=== PATIENT | male | born 1930 | race Caucasian/White ===

== ENCOUNTER 2017-03-04 20:34 | Observation (INO) | payer OTHER, MEDICARE ==
[~2017-03-04] VITALS: Ht 180.3 cm; Wt 94.4 kg
[~2017-03-04 20:34] MED LIST: ASPEC81 PO; CLIN300C2 PO; CMD5 PO; FLM4 PO; LOSA25TA18 PO; MAGN400T6 PO; MAXZIDE PO; SYN50 PO
[2017-03-04 21:35] LABS: BASO % 0.1 %; BASO ABS # 0.01 K/uL (0-0.2); COMPLETE YES; EOS % 1.5 %; HEMATOCRIT 45.1 % (42-52); IG% 0.3 %; LYMPH % 30.3 %; LYMPH ABS # 2.36 K/uL (1.2-3.4); MEAN CELL VOLUME 100.7 fL (80-100); MEAN CORPUSCULAR HEMOGLOBIN 34.2 pg (25-34); MEAN CORPUSCULAR HGB CONC 33.9 g/dl (32-36); MEAN PLATELET VOLUME 9.8 fL (7.4-10.4); MONO % 10.6 %; NEUT % 57.2 %; PLATELET COUNT 201 K/uL (130-400); RED BLOOD COUNT 4.48 M/uL (4.7-6.1)
[2017-03-04 21:43] LABS: MANUAL MICROSCOPIC REQUIRED? NO; REVIEW REQ? NO; URINE APPEARANCE CLEAR (CLEAR); URINE BILIRUBIN NEG (NEG); URINE COLOR YELLOW; URINE NITRITE NEG (NEG); URINE SPECIFIC GRAVITY 1.011 (1.000-1.030); UROBILINOGEN NEG (NEG); ZZUR CULT IF INDIC CLEAN CATCH NO
--- NOTE | 2017-03-04 21:52 | DIAGNOSTIC IMAGING REPORT ---
CHEST ONE VIEW PORTABLE CLINICAL HISTORY: Dizzy mental status change COMPARISON STUDY: 07/15/2013 FINDINGS: Mild atelectasis left base. Lungs otherwise appear clear. No evidence for significant cardiac enlargement. Diaphragms smooth. IMPRESSION: Mild atelectasis left base. Otherwise negative study Electronically signed by: Benjamín Nguyen M.D. 03/04/2017 9:50 PM Dictated Date/Time: 03/04/2017 9:50 PM
[2017-03-04 21:57] LABS: ALT/SGPT 31 U/L (12-78); BLOOD UREA NITROGEN 18 mg/dl (7-18); BUN/CREATININE RATIO 13.6 (10-20); CARBON DIOXIDE 25 mmol/L (21-32); CHLORIDE 106 mmol/L (98-107); GLUCOSE 99 mg/dl (70-99); POTASSIUM 3.5 mmol/L (3.5-5.1); SODIUM 142 mmol/L (136-145)
[2017-03-04 22:03] LABS: CALCIUM 8.9 mg/dl (8.5-10.1)
[2017-03-04 22:08] LABS: ALB/GLOB RATIO 1.1 (0.9-2); ALKALINE PHOSPHATASE 99 U/L (45-117); AST/SGOT 26 U/L (15-37); CKMB/CK RATIO 0.8 (0-3.0)
[2017-03-04] MEDS ORDERED: POTASSIUM CHLORIDE 10 MEQ TABCR PO STA (22:21)
[2017-03-04 22:59] LABS: MAGNESIUM 1.8 mg/dl (1.8-2.4)
[2017-03-04] MEDS ORDERED: ASPI-435 PO (23:41)
[2017-03-04] MEDS ORDERED: TRIATAB3 PO (23:45)
[2017-03-04] MEDS ORDERED: MAGNESIUM SULFATE 1GM / D5W 1 GM IV STA (23:54)
[2017-03-04] MEDS ORDERED: METOPROLOL TARTRATE 50 MG TAB PO STA (23:55)
[2017-03-05] VITALS (11 sets, daily range): BP systolic 137–176; BP diastolic 79–90; PULSE 53–72; TEMP 36.3–36.8; O2SAT 92–98; Ht 180.3 cm; Wt 94.4 kg
[2017-03-05] MEDS ORDERED: NITROGLYCERIN 0.4 MG SL PER TAB CHARGE SL PRN (00:30)
[2017-03-05] MEDS ORDERED: ONDANSETRON INJ 2 MG/ML 2 ML VIAL IV PRN (00:30)
[2017-03-05] MEDS ORDERED: ACETAMINOPHEN 325 MG TAB PO PRN (00:30)
[2017-03-05] MEDS ORDERED: TRAMADOL HCL 50 MG TAB PO PRN (00:30)
[2017-03-05] MEDS ORDERED: ZOLPIDEM TARTRATE 5 MG TAB PO PRN (00:30)
[2017-03-05] MEDS ORDERED: MoRPHine SULFATE 4 MG/ML 1 ML CARP\\VIAL IV PRN (00:30)
[2017-03-05] MEDS ORDERED: IV FLUIDS COMPLETED PRN (00:45)
--- NOTE | 2017-03-05 01:28 | EMERGENCY ROOM VISIT NOTE ---
History Report prepared by Chava: Charlie Armijo Under the Supervision of: Dr. Mookie Vogt M.D. First contact with patient: 21:38 Chief Complaint: DIZZY Stated Complaint: LIGHT HEADED,FAINT History of Present Illness The patient is a 86 year old male who presents to the Emergency Room with complaints of intermittent dizziness beginning shortly prior to arrival. He states "it just felt like I was going to pass out". He describes his dizziness as feeling of "lightheadedness". The patient has no history of similar symptoms. He states that his symptoms began while he was driving. He states that his symptoms resolved 15 minutes ago, and have returned since. The patient states that he has been having headaches recently, but attributes it to arthritis in his neck. He also states that he felt some chest "tightness" with his symptoms. Pt denies LOC, fevers, chills, diaphoresis, visual changes, neck pain, breathing difficulties, nausea, vomiting, abdominal pain, back pain, melena, hematochezia, urinary symptoms, numbness, weakness, lymphadenopathy, rash, or other complaints. He has a history of angioplasty. He has two cardiac stents in place. The patient is on Warfarin due to previous PE. He states that he has been eating and drinking normally. Per , the patient is at his mental baseline and has not been confused recently. Source of History: patient Onset: shortly prior to arrival Quality: other ("lightheadedness") Timing: intermittent Associated Symptoms: + headache, + chest pain ("tightness"), No SOB, No nausea, No vomiting, No diarrhea, No urinary symptoms Review of Systems See HPI for pertinent positives and negatives. A total of ten systems were reviewed and were otherwise negative. Past Medical & Surgical Medical Problems: (1) Coronary artery disease (2) Hyperlipidemia (3) Hypertension (4) Hypertensive urgency (5) Pulmonary embolism Surgical Problems: (1) H/O percutaneous transluminal coronary angioplasty (2) Stented coronary artery Family History No pertinent family history stated. Social History Smoking Status: Never Smoker Marital Status: Housing Status: lives with family Current/Historical Medications Scheduled Amlodipine (Norvasc), 5 MG PO QAM Aspirin (Aspirin 81), 81 MG PO QAM Atorvastatin (Lipitor), 80 MG PO DAILY Levothyroxine Sodium (Levothyroxine Sodium), 1 TAB PO DAILY Losartan Potassium (Cozaar), 50 MG PO BID Magnesium Oxide (Mag-Ox), 400 MG PO DAILY Metoprolol Tartrate (Lopressor) (Lopressor), 25 MG PO BID Multiple Vitamins W/ Minerals (Preservision Areds), 1 CAP PO BID [place]-3 Fatty Acids (Fish Oil), 1 CAP PO DAILY Potassium Chloride (Micro-K Ext Rel), 10 MEQ PO Q2D Tamsulosin Hcl (Flomax), 0.4 MG PO DAILY Triamterene/Hctz (Triamterene/Hctz 37.5-25MG), 1 TAB PO 5XWK Warfarin Sodium (Coumadin), 5 MG PO 2XWK Warfarin Sodium (Coumadin), 2.5 MG PO 5XWK Scheduled PRN Nitroglycerin (Nitrostat), 0.4 MG UT UD PRN for Chest Pain Zolpidem Tartrate (Ambien), 5 MG PO HS PRN Allergies Coded Allergies: Erythromycin (Verified Allergy, Mild, 03/04/17) Oxycodone (Verified Allergy, Mild, 03/04/17) Iodine (Verified Allergy, Unknown, 03/04/17) Macrolides (Verified Allergy, Unknown, 03/04/17) Clindamycin (Verified Adverse Reaction, Mild, 0, 03/05/17) twitching, spacey Hydrocodone (Verified Adverse Reaction, Unknown, SLEEPY, 03/04/17) FELT LIKE HE WOULD NEVER AWAKEN Physical Exam Vital Signs Date Time Temp Pulse Resp B/P (MAP) Pulse Ox O2 Delivery O2 Flow Rate FiO2 03/05/17 01:06 55 16 150/85 98 Room Air 03/05/17 00:03 88 16 155/85 98 Room Air 03/04/17 23:05 72 18 183/87 95 Room Air 03/04/17 21:13 64 20 178/83 98 Room Air 76 164/100 80 167/114 03/04/17 20:49 73 03/04/17 20:36 36.4 74 18 206/88 92 Room Air Physical Exam GENERAL: Awake, alert, well-appearing, in no distress HENT: Normocephalic, atraumatic. Oropharynx unremarkable. EYES: Normal conjunctiva. Sclera non-icteric. NECK: Supple. No nuchal rigidity. FROM. No JVD. RESPIRATORY: Clear to auscultation. CARDIAC: Regular rate, normal rhythm. Extremities warm and well perfused. Pulses equal. ABDOMEN: Soft, non-distended. No tenderness to palpation. No rebound or guarding. No masses. RECTAL: Deferred. MUSCULOSKELETAL: Chest examination reveals no tenderness. The back is symmetrical on inspection without obvious abnormality. There is no CVA tenderness to palpation. No joint edema. LOWER EXTREMITIES: Calves are equal size bilaterally and non-tender. No edema. No discoloration. NEURO: Normal sensorium. No sensory or motor deficits noted. SKIN: No rash or jaundice noted. Medical Decision & Procedures ER Provider Diagnostic Interpretation: X-ray: Per my interpretation, radiologist review. CHEST ONE VIEW PORTABLE FINDINGS: Mild atelectasis left base. Lungs otherwise appear clear. No evidence for significant cardiac enlargement. Diaphragms smooth. IMPRESSION: Mild atelectasis left base. Otherwise negative study Electronically signed by: Benjamín Nguyen M.D. CT result per statrad and my review. CT HEAD: Comparison: CT head 07/15/13 No acute intracranial abnormality. No ICH, mass effect, or edema. Cortical atrophy and white matter changes most consistent with chronic small vessel disease. Visualized sinuses and mastoid air cells are clear. Laboratory Results 03/04/17 21:07 Red Blood Count 4.48, Mean Corpuscular Volume 100.7, Mean Corpuscular Hemoglobin 34.2, Mean Corpuscular Hemoglobin Concent 33.9, Mean Platelet Volume 9.8, Neutrophils (%) (Auto) 57.2, Lymphocytes (%) (Auto) 30.3, Monocytes (%) ( Auto) 10.6, Eosinophils (%) (Auto) 1.5, Basophils (%) (Auto) 0.1, Neutrophils # (Auto) 4.46, Lymphocytes # (Auto) 2.36, Monocytes # (Auto) 0.83, Eosinophils # ( Auto) 0.12, Basophils # (Auto) 0.01 03/04/17 21:07 Test 03/04/17 21:07 03/04/17 21:10 White Blood Count 7.80 K/uL (4.8-10.8) Red Blood Count 4.48 M/uL (4.7-6.1) Hemoglobin 15.3 g/dL (14.0-18.0) Hematocrit 45.1 % (42-52) Mean Corpuscular Volume 100.7 fL (80-100) Mean Corpuscular Hemoglobin 34.2 pg (25-34) Mean Corpuscular Hemoglobin Concent 33.9 g/dl (32-36) Platelet Count 201 K/uL (130-400) Mean Platelet Volume 9.8 fL (7.4-10.4) Neutrophils (%) (Auto) 57.2 % Lymphocytes (%) (Auto) 30.3 % Monocytes (%) (Auto) 10.6 % Eosinophils (%) (Auto) 1.5 % Basophils (%) (Auto) 0.1 % Neutrophils # (Auto) 4.46 K/uL (1.4-6.5) Lymphocytes # (Auto) 2.36 K/uL (1.2-3.4) Monocytes # (Auto) 0.83 K/uL (0.11-0.59) Eosinophils # (Auto) 0.12 K/uL (0-0.5) Basophils # (Auto) 0.01 K/uL (0-0.2) RDW Standard Deviation 48.5 fL (36.4-46.3) RDW Coefficient of Variation 13.1 % (11.5-14.5) Immature Granulocyte % (Auto) 0.3 % Immature Granulocyte # (Auto) 0.02 K/uL (0.00-0.02) Anion Gap 11.0 mmol/L (3-11) Est Creatinine Clear Calc Drug Dose 49.9 ml/min Estimated GFR () 58.1 Estimated GFR (Non- 50.1 BUN/Creatinine Ratio 13.6 (10-20) Calcium Level 8.9 mg/dl (8.5-10.1) Magnesium Level 1.8 mg/dl (1.8-2.4) Total Bilirubin 0.6 mg/dl (0.2-1) Aspartate Amino Transf (AST/SGOT) 26 U/L (15-37) Alanine Aminotransferase (ALT/SGPT) 31 U/L (12-78) Alkaline Phosphatase 99 U/L (45-117) Total Creatine Kinase 107 U/L (39-308) Creatine Kinase MB 0.9 ng/ml (0.5-3.6) Creatine Kinase MB Ratio 0.8 (0-3.0) Troponin I < 0.015 ng/ml (0-0.045) Total Protein 7.2 gm/dl (6.4-8.2) Albumin 3.8 gm/dl (3.4-5.0) Globulin 3.4 gm/dl (2.5-4.0) Albumin/Globulin Ratio 1.1 (0.9-2) Thyroid Stimulating Hormone (TSH) 4.870 uIu/ml (0.300-4.500) Free Thyroxine 1.21 ng/dl (0.80-1.60) Urine Color YELLOW Urine Appearance CLEAR (CLEAR) Urine pH 7.0 (4.5-7.5) Urine Specific [place] 1.011 (1.000-1.030) Urine Protein NEG (NEG) Urine Glucose (UA) NEG (NEG) Urine Ketones NEG (NEG) Urine Occult Blood NEG (NEG) Urine Nitrite NEG (NEG) Urine Bilirubin NEG (NEG) Urine Urobilinogen NEG (NEG) Urine Leukocyte Esterase NEG (NEG) Urine WBC (Auto) 0 /hpf (0-5) Urine RBC (Auto) 0-4 /hpf (0-4) Urine Hyaline Casts (Auto) 0 /lpf (0-5) Urine Epithelial Cells (Auto) 5-10 /lpf (0-5) Urine Bacteria (Auto) NEG (NEG) Laboratory results reviewed by me Medications Administered Medications (Trade) Dose Ordered Sig/Yakov Route Start Time Stop Time Status Last Admin Dose Admin Potassium Chloride (Klor-Con M10) 50 meq NOW STAT PO 03/04/17 22:21 03/04/17 22:32 DC 03/04/17 23:02 50 MEQ Magnesium Sulfate 100 ml @ 100 mls/hr ONE STAT IV 03/04/17 23:54 03/05/17 00:53 DC 03/05/17 00:02 100 MLS/HR Metoprolol Tartrate (Lopressor Tab) 25 mg ONE STAT PO 03/04/17 23:55 03/04/17 23:56 DC 03/05/17 00:03 25 MG ECG Indication: chest pain Rate (beats per minute): 70 Rhythm: sinus with SA Findings: PVC, no acute ischemic change ED Course 2204: The patient was evaluated in room B9. A complete history and physical exam was performed. 2217: Upon reexamination, the patient was resting comfortably. I discussed the test results and treatment plan with him. The patient will be evaluated for further management. Medical Decision Medication Reconciliation: I attest that I have personally reviewed the patient' s current medication list Blood pressure screening: Patient was found to have an elevated blood pressure and was referred to their primary doctor for recheck and further treatment. [facility] Nursing notes reviewed. The patient's presentation and history were concerning for near syncope. Etiologies such as vasovagal event, infection, hypoglycemia, electrolyte abnormalities, cardiac sources, intracerebral event, toxicologic, neurologic, as well as others were entertained. Patient was evaluated. Clinically was doing well at the time. He was borderline bradycardic. ECG did not reveal any acute findings. His CBC: Chemistry panel, and cardiac markers were unremarkable. The patient had a nonfocal neurologic examination. He had no headache. Given the patient's cardiac history and symptoms coupled with his elevated blood pressure further evaluation and management in the hospital. The most appropriate. The patient had no vertigo-like signs or symptoms. He was presyncopal and had some chest tightness. Consults Time Called: 2214 Consulting Physician: Dr. Corrine Sebastian Returned Call: [phone] Discussed the patient's case. The patient will be evaluated for further treatment and disposition. Impression Primary Impression: Near syncope Additional Impression: Substernal chest pain Scribe Attestation The scribe's documentation has been prepared under my direction and personally reviewed by me in its entirety. I confirm that the note above accurately reflects all work, treatment, procedures, and medical decision making performed by me. Departure Information Dispostion Being Evaluated By Hospitalist Referrals Sreedhar Atkins M.D. (PCP) Patient Instructions [facility] Problem Qualifiers
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
[2017-03-05] MEDS ORDERED: LACTATED RINGER'S 1000ML 1,000 ML IV ONE (02:15)
[2017-03-05] MEDS ORDERED: LOSARTAN POTASSIUM 50 MG TAB PO ONE (02:15)
[2017-03-05] MEDS ORDERED: ASPIRIN 81 MG ECTAB PO ONE (02:15)
[2017-03-05] MEDS ORDERED: ATORVASTATIN 40 MG TAB PO ONE (02:15)
[2017-03-05 04:27] LABS: BASO % 0.3 %; BASO ABS # 0.02 K/uL (0-0.2); COMPLETE YES; EOS % 2.1 %; HEMATOCRIT 42.5 % (42-52); IG% 0.2 %; LYMPH % 22.7 %; LYMPH ABS # 1.43 K/uL (1.2-3.4); MEAN CELL VOLUME 101.7 fL (80-100); MEAN CORPUSCULAR HGB CONC 33.4 g/dl (32-36); MEAN PLATELET VOLUME 9.5 fL (7.4-10.4); MONO % 14.9 %; NEUT % 59.8 %; PLATELET COUNT 173 K/uL (130-400); RED BLOOD COUNT 4.18 M/uL (4.7-6.1); WHITE BLOOD COUNT 6.29 K/uL (4.8-10.8)
[2017-03-05 04:38] LABS: INR 2.1 (0.9-1.1); PROTHROMBIN TIME (PATIENT) 22.7 SECONDS (9.0-12.0)
[2017-03-05 04:45] LABS: BLOOD UREA NITROGEN 14 mg/dl (7-18); CALCIUM 8.2 mg/dl (8.5-10.1); CARBON DIOXIDE 29 mmol/L (21-32); CHLORIDE 108 mmol/L (98-107); GLUCOSE 98 mg/dl (70-99); SODIUM 143 mmol/L (136-145)
[2017-03-05 05:13] LABS: LYME DISEASE AB IGG NEG (NEG); LYME DISEASE AB IGM NEG (NEG)
[2017-03-05] MEDS ORDERED: LEVOTHYROXINE 75 MCG TAB PO SCH (06:30)
--- NOTE | 2017-03-05 06:39 | DIAGNOSTIC IMAGING REPORT ---
CT OF THE HEAD WITHOUT CONTRAST CLINICAL HISTORY: Headache. COMPARISON STUDY: Head CT T July 15, 2013. CT DOSE: 537.48 mGy.cm TECHNIQUE: Helical axial images of the head were obtained without IV contrast. Automated exposure control was utilized for the study. FINDINGS: No acute intracranial hemorrhage, midline shift or mass effect is present. Ventricular system is normal for age. There is mild atrophy and presumed small vessel disease. There are no findings to suggest acute thrombosis or acute territorial infarct. There are no calvarial abnormalities. Visualized portions of the sinuses and mastoid air cells are clear. IMPRESSION: No acute intracranial findings. Electronically signed by: Wayne Medrano M.D. 03/05/2017 6:38 AM Dictated Date/Time: 03/05/2017 6:36 AM
[2017-03-05] MEDS ORDERED: AMLODIPINE BESYLATE 5 MG TAB PO SCH (09:00)
[2017-03-05] MEDS ORDERED: POTASSIUM CHLORIDE 10 MEQ TABCR PO SCH (09:00)
[2017-03-05] MEDS ORDERED: CEROVITE ADV FORMULA TAB PO SCH (09:00)
[2017-03-05] MEDS ORDERED: TAMSULOSIN HCL 0.4 MG CAP PO SCH (09:00)
[2017-03-05] MEDS ORDERED: METOPROLOL TARTRATE 50 MG TAB PO SCH (09:00)
[2017-03-05] MEDS ORDERED: MAGNESIUM OXIDE 400 MG TAB PO SCH (09:00)
[2017-03-05] MEDS ORDERED: LOSARTAN POTASSIUM 50 MG TAB PO SCH (09:00)
[2017-03-05] MEDS ORDERED: TRIAMTERENE/HCTZ 37.5/25MG TAB PO ONE (11:00)
--- NOTE | 2017-03-05 11:49 | Cardiology Consultation ---
Cardiology Consultation Date of Consultation: Mar 05, 2017 History of Present Illness Mark Musa is a 86 year old male seen in cardiology consultation per the request of Dr Shaver for the evaluation of chest pain and hypertension. The patient is known to our cardiology service and had last been seen by MARYCARMEN Umanzor on 02/04/17. BP was above goal at that time at 150/80 and losartan was increased from 50 mg daily to 50 my two times per day. He typically takes his triamterene hydrochlorothiazide 5 days per week, holding it on Saturday and . He states that he was in his normal state of health yesterday. He recalls that 2 days prior he was helping a banquet chef resurface a wall in his home and he had performed her physical exertion and he typically does and on Saturday he felt tired but otherwise felt okay area yesterday, Saturday, he attended his granddaughter's graduation from middle school in [place]. He states that at approximately 8 PM he was driving home accompanied by his spouse and felt onset of feeling poorly with abrupt onset. He felt dizzy as if he was going to pass out. He also noted tremors in his arms. He presented to the emergency department at 2035 with initial blood pressure of 206/88 mmHg an initial heart rate of [address] of the brain revealed no acute intracranial findings. Per the radiology report his chest x-ray revealed mild atelectasis of the left base otherwise was a normal study. EKG revealed normal sinus rhythm with occasional PVCs and no significant ST changes. Repeat EKG tracing performed this morning 03/05/2017 at 7:17 AM and reviewed independently by the undersigned revealed sinus bradycardia 55 bpm with no significant ST changes. Cardiac enzymes negative 2. Currently, his symptoms have completely resolved without intervention with the exception of IV hydration. His blood pressure remained elevated overnight last night and reading this morning at 9:27 AM was 171/90 mmHg. Most recently at 11: 15 AM after receiving his morning medications and was 155/81. His triamterene// hydrochlorothiazide had been held overnight and his dose was given per my advice at 10:37 AM. History Past Medical History: History of ischemic heart disease s/p plain old balloon angioplasty of the left circumflex coronary artery in 1996 Recurrence angina, status post PCI with bare metal stents to the LAD in November 2010 at [facility]. Residual 70% stenosis of obtuse marginal branch and 70% stenosis of a diagonal branch of the LAD. Hypertension. Hyperlipidemia. 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 GERD. Hypothyroidism, euthyroid on thyroid replacement. Past Surgical History: Cardiac catheterization as outlined above Cataract surgery Hernia repair Social History: Patient is a nonsmoker. He lives at home with his spouse. 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 Family History: Notable for heart disease, details unknown Review Of Systems See above for pertinent positives & negatives. A total of 10 systems reviewed and were otherwise negative. Allergies Coded Allergies: Erythromycin (Verified Allergy, Mild, 03/04/17) Oxycodone (Verified Allergy, Mild, 03/04/17) Iodine (Verified Allergy, Unknown, 03/04/17) Macrolides (Verified Allergy, Unknown, 03/04/17) Clindamycin (Verified Adverse Reaction, Mild, 0, 03/05/17) twitching, spacey Hydrocodone (Verified Adverse Reaction, Unknown, SLEEPY, 03/04/17) FELT LIKE HE WOULD NEVER AWAKEN Medications Reported Home Medications Medications Dose Route/Sig Max Daily Dose Days Date Category Dose Instructions Coumadin (Warfarin Sodium) 5 Mg Tab 2.5 Mg PO 5XWK 03/04/17 Reported TAKE DAILY ON SAT//SAT//SAT Coumadin (Warfarin Sodium) 5 Mg Tab 5 Mg PO 2XWK 03/04/17 Reported TAKE DAILY ON SATURDAY & SATURDAY Triamterene/Hctz 37.5-25MG (Triamterene/HCTZ) 1 Tab Tab 1 Tab PO 5XWK 03/04/17 Reported TAKE DAILY ON SAT,SAT,,SAT,SATURDAY Cozaar (Losartan Potassium) 50 Mg Tab 50 Mg PO BID 03/04/17 Reported Flomax (Tamsulosin Hcl) 0.4 Mg Cap 0.4 Mg PO DAILY 03/04/17 Reported Levothyroxine Sodium 75 Mcg Tab 1 Tab PO DAILY 90 03/04/17 Reported Aspirin 81 (Aspirin) 81 Mg Tab 81 Mg PO QAM 03/04/17 Reported Preservision Areds (Multiple Vitamins W/ Minerals) 1 Cap Cap 1 Cap PO BID 4/30/14 Reported Fish Oil ([place]-3 Fatty Acids) 1 Cap Cap 1 Cap PO DAILY 07/15/13 Reported Nitrostat (Nitroglycerin) 0.4 Mg Sub 0.4 Mg UT UD PRN 07/15/13 Reported Ambien (Zolpidem Tartrate) 5 Mg Tab 5 Mg PO HS PRN 07/15/13 Reported Lipitor (Atorvastatin Calcium) 80 Mg Tab 80 Mg PO DAILY 07/15/13 Reported Mag-Ox (Magnesium Oxide) 400 Mg Tab 400 Mg PO DAILY 04/29/07 Reported Micro-K Ext Rel (Potassium Chloride) 10 Meq Capcr 10 Meq PO Q2D 04/29/07 Reported TAKE ON ODD DAYS Lopressor (Metoprolol Tartrate) 50 Mg Tab 25 Mg PO BID 04/29/07 Reported Norvasc (Amlodipine Besylate) 5 Mg Tab 5 Mg PO QAM 04/21/07 Reported Physical Exam Vital Signs (Last 8hrs): Last 8 Hrs Date Time Temp Pulse Resp B/P (MAP) Pulse Ox O2 Delivery O2 Flow Rate FiO2 03/05/17 09:27 171/90 (117) 03/05/17 08:00 Room Air 03/05/17 07:59 67 03/05/17 07:16 36.6 53 18 174/88 (116) 92 03/05/17 04:05 98 Room Air 03/05/17 02:32 56 176/89 (118) General Appearance: Alert and Oriented x3. NAD. Head: Normocephalic Atraumatic. Eyes: PERRLA, EOMI, conjunctiva and sclera clear Neck: Supple. No carotid bruits noted. No JVD. No HJD. Respiratory: Breath sounds clear to auscultation bilaterally. No w/r/r. Cardiovascular: Reg rate and rhythm. S1 and S2 noted. No murmurs, rubs, gallops. PMI non displace. Abdomen: Normal bowel sounds, soft nontender. no abdominal bruits. Extremities: No edema, no clubbing or cyanosis. distal pulses 2/4 bilaterally. Neuro: No focal deficits. Psychiatric: Normal affect. Data Last 24 Hours Test 03/04/17 21:07 03/04/17 21:10 03/05/17 04:20 White Blood Count 7.80 K/uL 6.29 K/uL Red Blood Count 4.48 M/uL 4.18 M/uL Hemoglobin 15.3 g/dL 14.2 g/dL Hematocrit 45.1 % 42.5 % Mean Corpuscular Volume 100.7 fL 101.7 fL Mean Corpuscular Hemoglobin 34.2 pg 34.0 pg Mean Corpuscular Hemoglobin Concent 33.9 g/dl 33.4 g/dl Platelet Count 201 K/uL 173 K/uL Mean Platelet Volume 9.8 fL 9.5 fL Neutrophils (%) (Auto) 57.2 % 59.8 % Lymphocytes (%) (Auto) 30.3 % 22.7 % Monocytes (%) (Auto) 10.6 % 14.9 % Eosinophils (%) (Auto) 1.5 % 2.1 % Basophils (%) (Auto) 0.1 % 0.3 % Neutrophils # (Auto) 4.46 K/uL 3.76 K/uL Lymphocytes # (Auto) 2.36 K/uL 1.43 K/uL Monocytes # (Auto) 0.83 K/uL 0.94 K/uL Eosinophils # (Auto) 0.12 K/uL 0.13 K/uL Basophils # (Auto) 0.01 K/uL 0.02 K/uL RDW Standard Deviation 48.5 fL 49.0 fL RDW Coefficient of Variation 13.1 % 13.1 % Immature Granulocyte % (Auto) 0.3 % 0.2 % Immature Granulocyte # (Auto) 0.02 K/uL 0.01 K/uL Sodium Level 142 mmol/L 143 mmol/L Potassium Level 3.5 mmol/L 4.0 mmol/L Chloride Level 106 mmol/L 108 mmol/L Carbon Dioxide Level 25 mmol/L 29 mmol/L Anion Gap 11.0 mmol/L 6.0 mmol/L Blood Urea Nitrogen 18 mg/dl 14 mg/dl Creatinine 1.30 mg/dl 1.10 mg/dl Est Creatinine Clear Calc Drug Dose 49.9 ml/min 58.9 ml/min Estimated GFR () 58.1 71.1 Estimated GFR (Non- 50.1 61.3 BUN/Creatinine Ratio 13.6 13.0 Random Glucose 99 mg/dl 98 mg/dl Calcium Level 8.9 mg/dl 8.2 mg/dl Magnesium Level 1.8 mg/dl Total Bilirubin 0.6 mg/dl Aspartate Amino Transf (AST/SGOT) 26 U/L Alanine Aminotransferase (ALT/SGPT) 31 U/L Alkaline Phosphatase 99 U/L Total Creatine Kinase 107 U/L Creatine Kinase MB 0.9 ng/ml Creatine Kinase MB Ratio 0.8 Troponin I < 0.015 ng/ml < 0.015 ng/ml Total Protein 7.2 gm/dl Albumin 3.8 gm/dl Globulin 3.4 gm/dl Albumin/Globulin Ratio 1.1 Thyroid Stimulating Hormone (TSH) 4.870 uIu/ml Free Thyroxine 1.21 ng/dl Lyme Disease IgG Antibody NEG Lyme Disease IgM Antibody NEG Urine Color YELLOW Urine Appearance CLEAR Urine pH 7.0 Urine Specific Springer 1.011 Urine Protein NEG Urine Glucose (UA) NEG Urine Ketones NEG Urine Occult Blood NEG Urine Nitrite NEG Urine Bilirubin NEG Urine Urobilinogen NEG Urine Leukocyte Esterase NEG Urine WBC (Auto) 0 /hpf Urine RBC (Auto) 0-4 /hpf Urine Hyaline Casts (Auto) 0 /lpf Urine Epithelial Cells (Auto) 5-10 /lpf Urine Bacteria (Auto) NEG Prothrombin Time 22.7 SECONDS Prothromb Time International Ratio 2.1 EKG as outlined in history of present illness. Telemetry reveals stable sinus rhythm without tachycardia or bradycardia Assessment & Plan Impression: 86-year-old male 1. Presented with dizziness and transient tremors, although the admission history and physical states he had transient chest discomfort the patient really does not describe this in my evaluation and he states his symptoms completely resolved. 2. Underlying chronic ischemic heart disease, with nonischemic EKG, cardiac enzymes negative 2 3. Hypertension, perhaps hypertensive urgency. Plan: At present, the patient's symptoms have resolved without specific intervention with the exception of administering his home medications. He states that he did not miss any medications yesterday. His losartan had recently been increased for blood pressure that was above goal , but the reading was 150/80 in the office and reading the next day at his primary care provider's office on 02/05/17 was better controlled with systolic reading under 140 mmHg at that time and certainly not as high as what we observe last night. At present, I think the likelihood of this being a presentation of an acute coronary syndrome is very low. Bradycardia was absent upon arrival. I would like to recheck his blood pressure again now in 2 hours. If he remains stable, plan to discharge the patient on his home medications with plans to administer his prior to hospital dose of triamterene/HCTZ on a daily basis as compared to 5 days per week. I do not think an echocardiogram is necessary at this time and therefore I have canceled this test. Guicho Hutton D.O.
[2017-03-05] MEDS ORDERED: TRIA37.53 PO (13:39)
--- NOTE | 2017-03-05 13:39 | Discharge Instructions ---
Discharge Instructions Date of Service Mar 05, 2017. Admission Reason for Admission: Hypertensive Urgency Discharge Discharge Diagnosis / Problem: HYPERTENSIVE URGENCY /DIZZY SPELL Discharge Goals Goal(s): Decrease discomfort, Therapeutic intervention Activity Recommendations Activity Limitations: resume your previous activity . Instructions / Follow-Up Instructions / Follow-Up HOSPITAL FOLLOW UP ON 03/11/2017 @ 11:[address] Mookie Dubon III, MD [facility] YOUR BLOOD PRESSURE MEDICATIONS BEEN ADJUSTED TAKE HCTZ/TRIAMTERENE( MAXZIDE ) EVERY DAY Current Hospital Diet Patient's current hospital diet: AHA Diet (Heart Healthy) Discharge Diet Recommended Diet: AHA Diet (Heart Healthy) Pending Studies Studies pending at discharge: no Medical Emergencies . Who to Call and When: Medical Emergencies: If at any time you feel your situation is an emergency, please call 911 immediately. . Non-Emergent Contact Non-Emergency issues call your: Primary Care Provider . . "Provider Documentation" section prepared by Usha Edwards. . VTE Core Measure Inpt VTE Proph given/why not?: Warfarin (Coumadin)
[2017-03-05] MEDS: CEPHALEXIN MONOHYDRATE 500 MG CAP PO SCH ×2 (14:12→16:57)
[2017-03-05] MEDS ORDERED: KFL500 PO (17:43)
[2017-03-05] MEDS ORDERED: ASPIRIN 81 MG ECTAB PO SCH (21:00)
[2017-03-05] MEDS ORDERED: ATORVASTATIN 40 MG TAB PO SCH (21:00)
--- NOTE | 2017-03-05 21:49 | Discharge Summary ---
Discharge Summary Date of Service Mar 05, 2017. Discharge Summary Admission Date: Mar 05, 2017 at 00:10 Discharge Date: Mar 05, 2017 Discharge Disposition: Home Principal Diagnosis: HYPERTENSIVE URGENCY /DIZZY SPELL Consultations: CARDIOLOGY Medication Reconciliation New Medications: Cephalexin Monohydrate (Cephalexin) 500 Mg Cap 500 MG PO QID for 7 Days, #28 CAP Triamterene & Hydrochlorothiaz (Hctz/Triamterene) 1 Tab Tab 1 TAB PO DAILY for 30 Days, #30 TAB 2 Refills Continued Medications: Amlodipine (Norvasc) 5 Mg Tab 5 MG PO QAM, 0 Refills Aspirin (Aspirin 81) 81 Mg Tab 81 MG PO QAM Atorvastatin (Lipitor) 80 Mg Tab 80 MG PO DAILY, TAB Levothyroxine Sodium (Levothyroxine Sodium) 75 Mcg Tab 1 TAB PO DAILY for 90 Days, #90 TAB 3 Refills Losartan Potassium (Cozaar) 50 Mg Tab 50 MG PO BID, TAB Magnesium Oxide (Mag-Ox) 400 Mg Tab 400 MG PO DAILY, 0 Refills Metoprolol Tartrate (Lopressor) (Lopressor) 50 Mg Tab 25 MG PO BID, 0 Refills Multiple Vitamins W/ Minerals (Preservision Areds) 1 Cap Cap 1 CAP PO BID Nitroglycerin (Nitrostat) 0.4 Mg Sub 0.4 MG UT UD PRN for Chest Pain, BTL [place]-3 Fatty Acids (Fish Oil) 1 Cap Cap 1 CAP PO DAILY Potassium Chloride (Micro-K Ext Rel) 10 Meq Capcr 10 MEQ PO Q2D, 0 Refills TAKE ON ODD DAYS Tamsulosin Hcl (Flomax) 0.4 Mg Cap 0.4 MG PO DAILY, CAP Warfarin Sodium (Coumadin) 5 Mg Tab 5 MG PO 2XWK, 3 Refills TAKE DAILY ON SATURDAY & SATURDAY Warfarin Sodium (Coumadin) 5 Mg Tab 2.5 MG PO 5XWK TAKE DAILY ON SAT//SAT//SAT Zolpidem Tartrate (Ambien) 5 Mg Tab 5 MG PO HS PRN, TAB Discontinued Medications: Triamterene/Hctz (Triamterene/Hctz 37.5-25MG) 1 Tab Tab 1 TAB PO 5XWK TAKE DAILY ON SAT,SAT,,SAT,SATURDAY Referrals At Discharge Follow up Referrals: Physician Referral - 03/11/17 with Cordell Musa MD Admission Information HPI (per Admitting provider): DATE OF ADMISSION: 03/04/2017 PRIMARY CARE DOCTOR: Dr. Malone CHIEF COMPLAINT: Lightheaded, dizziness, near syncope and chest discomfort. HISTORY OF PRESENT ILLNESS: Hx obtained from px and records. Medical history is significant for CAD status post angioplasty and stenting, hypertension, hyperlipidemia, pulmonary embolism on anticoagulation and hypothyroidism. Recent confinement March 2007 for contusion of the right thigh. 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 Today, he was driving with his when he felt dizzy, lightheaded. felt like he was going to pass out. Px had transient pressure like left-sided chest discomfort/ No shortness of breath, no fever, no chills, no cough. Patient has headache going to the post neck which he thinks might be from his chronic arthritic neck pain. Patient was shaking in the Emergency Room. Compliant with home meds. He denies unusual stress at home. Denies dietary indiscretion. He does not check blood pressure at home. Upon arrival in the ER , px BP 206/88. Stress test in August 2015 was negative for inducible ischemia. MEDICAL HISTORY: As above. SURGERIES: He has had cataract surgery and hernia repair. HOME MEDICATIONS: Include; levothyroxine, metoprolol, atorvastatin, tamsulosin, triamterene, losartan, zolpidem, amlodipine, nitroglycerin, PreserVision, Tylenol, fish oil, mag ox and aspirin. ALLERGIES: TO IODINE, CLINDAMYCIN, ERYTHROMYCIN, VICODIN, HYDROCODONE AND BACTRIM. FAMILY HISTORY: Heart disease. PERSONAL AND SOCIAL HISTORY: Nonsmoker. No chronic intake of alcoholic beverages. 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 REVIEW OF SYSTEMS: As per HPI. All other ROS negative. Physical Exam (per Admitting): PHYSICAL EXAMINATION: GENERAL: Noted to be slightly anxious, in no respiratory distress. VITAL SIGNS: Blood pressure was noted to be 206/88, pulse rate 74, RR 18, temperature 36.4 and sats 92 on room air. Orthostatic vitals: supine BP 178/83, heart rate of 64; standing blood pressure 167/114, heart rate of 80. SKIN: Normal color. HEENT: alopecia, pink palpebral conjunctivae. Dry mucosa. NECK: Short neck. LUNGS: Decreased breath sounds. HEART: Regular rate and rhythm. ABDOMEN: Soft. EXTREMITIES: Minimal LE edema. no tenderness NEUROLOGIC: No gross focality. Hospital Course Feels fine , no complain of dizzy spell or lightheadedness, ambulating in hallway no chest pain or SOB BP much improved after adjusting medications stable to be discharged home today P/E: GEN ; no sign of distress HEENT ; sclera non icteric LUNGS; CTA HT; regular S1/S2 ABDOMEN; soft, non tender EXT ; shallow erythematous rash on rt upper leg, no drainage NEURO : no focal deficit A/p ; Impression: 86-year-old male presented with Dizziness, tremors for brief period DIZZY SPELL symptom has resolved possible due to hypertensive urgency SBP was in [address] head negative for CVA symptom resolved , no neurological deficit HYPERTENSIVE URGENCY : BP improved after adjusting meds Losartan been increased to twice daily pt will is asked to take Maxide daily ( was taking 5x week ) \\ appreciate input form cardiology stable to be discharged home today CHEST PAIN : due to hypertensive urgency resolved after BP is stabilized no evidence of ACS serial cardiac markers been negative appreciate cardiology eval RT LEG CELLULITIS : mentions having scratch while doing gardening Lyme titer negative ordered for Keflex DISPOSITION : Discharge home today Discharge Instructions DI: Medical v4 Discharge Instructions Date of Service Mar 05, 2017. Admission Reason for Admission: Hypertensive Urgency Discharge Discharge Diagnosis / Problem: HYPERTENSIVE URGENCY /DIZZY SPELL Discharge Goals Goal(s): Decrease discomfort, Therapeutic intervention Activity Recommendations Activity Limitations: resume your previous activity . Instructions / Follow-Up Instructions / Follow-Up HOSPITAL FOLLOW UP ON 03/11/2017 @ 11:[address] Mookie Dubon III, MD [facility] YOUR BLOOD PRESSURE MEDICATIONS BEEN ADJUSTED TAKE HCTZ/TRIAMTERENE( MAXZIDE ) EVERY DAY Current Hospital Diet Patient's current hospital diet: AHA Diet (Heart Healthy) Discharge Diet Recommended Diet: AHA Diet (Heart Healthy) Pending Studies Studies pending at discharge: no Medical Emergencies . Who to Call and When: Medical Emergencies: If at any time you feel your situation is an emergency, please call 911 immediately. . Non-Emergent Contact Non-Emergency issues call your: Primary Care Provider . . "Provider Documentation" section prepared by Usha Edwards. . VTE Core Measure Inpt VTE Proph given/why not?: Warfarin (Coumadin) Additional Copies To Mookie Dubon III, M.D.
[2017-03-06] MEDS ORDERED: TRIAMTERENE/HCTZ 37.5/25MG TAB PO SCH (09:00)
[2017-04-11] MEDS ORDERED: MAGN250T22 PO (15:05)
[2017-04-19] MEDS ORDERED: CEPH-571 PO (08:47)
[2017-05-22] MEDS ORDERED: METO50TA16 PO (04:07)
[2017-05-22] MEDS ORDERED: POTA10CA28 PO (04:10)
[2017-05-22] MEDS ORDERED: ATOR-26 PO (10:33)
[2017-05-22] MEDS ORDERED: OMEG1CAP84 PO (10:36)
[2017-05-22] MEDS ORDERED: NITR0.4S UT (10:36)
[2017-05-22] MEDS ORDERED: ZOLP5TAB PO (10:36)
[2017-05-22] MEDS ORDERED: TRIAMTERENE/HCTZ PO (15:05)
[2017-05-22] MEDS ORDERED: ASPCH81X PO (15:05)
[2017-05-22] MEDS ORDERED: AMLO-110 PO (17:01)
== END 2017-03-05 18:55 | disposition home or self-care (01) ==
LOC: C.EDB 20:35 → C.MED 03-05 00:10 → ENRESERV 03-05 01:06
PROVIDERS: ADMIT Internal Medicine; ATTEND Hospitalist
DX: I16.0 Hypertensive urgency (principal); R55 Syncope and collapse; I10 Essential (primary) hypertension; I25.10 Atherosclerotic heart disease of native coronary artery without angina pectoris; E03.9 Hypothyroidism, unspecified; E78.5 Hyperlipidemia, unspecified; Z98.61 Coronary angioplasty status; Z79.01 Long term (current) use of anticoagulants; Z79.82 Long term (current) use of aspirin; Z86.711 Personal history of pulmonary embolism; Z82.49 Family history of ischemic heart disease and other diseases of the circulatory system

== ENCOUNTER → 2017-04-10 | Outpatient (CLI) | payer OTHER, MEDICARE ==
[~2017-04-10] MED LIST changes: +AMLO-110 PO; +ASPCH81X PO; -ASPEC81 PO; +ASPI-435 PO; +ATOR-26 PO; +CEFP100T7 PO; +CEPH-571 PO; +CEPH500C2 PO; -CLIN300C2 PO; -CMD5 PO; -FLM4 PO; +KFL500 PO; +LEVO75TA5 PO; -LOSA25TA18 PO; +LOSA50TA6 PO; +MAGN250T22 PO; -MAXZIDE PO; +METO50TA16 PO; +MULTCAP33 PO; +NITR0.4S UT; +OMEG1CAP84 PO; +POTA10CA28 PO; -SYN50 PO; +TAMS0.4C38 PO; +TRIA37.53 PO; +TRIAMTERENE/HCTZ PO; +WARF5TAB90 PO; +ZOLP5TAB PO
[2017-04-10 12:20] LABS: HEMATOCRIT 44.9 % (42-52); MEAN CELL VOLUME 99.1 fL (80-100); MEAN CORPUSCULAR HEMOGLOBIN 32.9 pg (25-34); MEAN CORPUSCULAR HGB CONC 33.2 g/dl (32-36); MEAN PLATELET VOLUME 9.7 fL (7.4-10.4); PLATELET COUNT 225 K/uL (130-400); RED BLOOD COUNT 4.53 M/uL (4.7-6.1); WHITE BLOOD COUNT 6.25 K/uL (4.8-10.8)
[2017-04-10 12:27] LABS: INR 2.3 (0.9-1.1); PARTIAL THROMBOPLASTIN RATIO 1.6; PROTHROMBIN TIME (PATIENT) 25.3 SECONDS (9.0-12.0)
[2017-04-10 12:30] LABS: POTASSIUM 4.2 mmol/L (3.5-5.1)
== END | disposition home or self-care (01) ==
LOC: C.CPL 09:50
PROVIDERS: ATTEND Physician Assistant
DX: Z01.812 Encounter for preprocedural laboratory examination (principal); Z01.810 Encounter for preprocedural cardiovascular examination; R00.1 Bradycardia, unspecified

== ENCOUNTER → 2017-04-19 | Day surgery (SDC) | payer OTHER, MEDICARE ==
[2017-04-11 15:06] VITALS: Ht 167.6 cm; Wt 90.9 kg
[~2017-04-19] VITALS: Ht 167.6 cm; Wt 90.9 kg
[~2017-04-19] MED LIST changes: +ACETAMINOPHEN 325 MG TAB PO PRN; -ASPI-435 PO; +BUPIVACAINE 0.25% 2.5MG/ML PF 10 ML VIAL ONE; +CEFAZOLIN 2000 MG/60 ML D5W IV SCH; +DEXAMETHASONE SOD INJ 4 MG/ML VIAL ONE; +FENTANYL CITRATE INJ 50 MCG/1 ML 2 ML VIAL ONE; +GENTIAN VIOLET TOP SOLN DROP CHARGE ONE; -KFL500 PO; +LACTATED RINGER'S 1000ML 1,000 ML IV SCH; +LIDOCAINE HCL 2% 2 ML VIAL (20MG/ML) ONE; +LIDOCAINE/EPINEPHRINE 1% INJ 50 ML VIAL ONE; -MAGN400T6 PO; +METOCLOPRAMIDE HCL INJ 5 MG/ML 2 ML VIAL IV PRN; +MIDAZOLAM HCL 1 MG/ML 2ML VIAL ONE; +ONDANSETRON INJ 2 MG/ML 2 ML VIAL IV PRN; +ONDANSETRON INJ 2 MG/ML 2 ML VIAL ONE; +OXYCODONE/ACETAMINOPHEN 5-325 TAB PO PRN; +POVIDONE-IODINE OP SOLN 30 ML BTL ONE; +PROPOFOL IV EMULSION 10 MG/ML 20 ML VIAL IV ONE; +SODIUM CHLORIDE 0.9% 1000ML 1,000 ML IV SCH; -TRIA37.53 PO
--- NOTE | 2017-04-19 07:03 | History & Physical Bridge - SC ---
H&P Re-Evaluation Bridge Note: I have examined the patient, reviewed the History & Physical and in the interval since the performance of the History & Physical I have noted the following changes of clinical significance: No changes noted
--- NOTE | 2017-04-19 08:44 | [facility] Post Operative Brief Note ---
Immediate Operative Summary Operative Date Apr 19, 2017. 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 Basurto Try Out Person Surgeon(s) Drew Pereira PA-C Estimated Blood Loss 5 mL Findings none Specimens A. Melanoma In Situ Right Ear [place] Anesthesia local Complication(s) None Disposition Recovery Room / PACU
--- NOTE | 2017-04-19 08:50 | Discharge Instructions ---
Discharge Instructions Date of Service Apr 19, 2017. Admission Reason for Admission: Melanoma In Situ Discharge Discharge Diagnosis / Problem: melanoma in situ Discharge Goals Goal(s): Decrease discomfort Activity Recommendations Activity Limitations: per Instructions/Follow-up section ACTIVITY RECOMMENDATIONS: __Normal activities _x_No bending, lifting or straining __No driving _x_Driving allowed when you are off pain medications _x_Walking permitted __You should have help at home for ___ days DRESSINGS: __No dressings required _x_Keep dressings dry/in place until first office visit __Remove dressings ___ and leave dressings off __Apply ice ___ days __Remove dressings and reapply garment __Apply antibiotic ointment (Bacitracin, Neosporin, etc) to wounds 3-4 times/ day for 10 days BATHING: _x_Keep dressings dry _x_Sponge bathing permitted __Showering permitted _x_No swimming, hot tubs or showers MEDICATIONS: Resume previous medications unless instructed otherwise by your surgeon. _x_Do not use aspirin, Motrin, Advil or Ibuprofen as these may promote bleeding. Please use Tylenol. _x_Prescription(s) provided: Antibiotics were prescribed for you today. Please start today and continue until your graft dressing is removed. Please follow previously provided instructions for your Coumadin and Aspirin OTHER INSTRUCTIONS: __Record drain output 2-3 times per day SPECIAL CARE INSTRUCTIONS: * It is normal to have a mild fever after surgery. If your temperature is higher than 101.5 degrees F, please call the office at [phone]. * Constipation is a typical side effect of pain medication. An over-the- counter stool softener will help relieve this. * Leaking around surgical drains may occur and should not cause concern. Sometimes these drains become clogged. If this happens, remove the bulb and milk the clot out of the tube, then replace the bulb. * Drainage from wounds after liposuction is normal and should be expected. Garments will become soiled. You should protect furniture and bedding. This drainage should mostly subside within 2-3 days. Leave garments in place unless instructed to remove them. * If you have unusual drainage from a wound or are concerned you have an infection or have any questions or concerns, please call the office at [phone]. FOLLOW UP VISIT: If not already scheduled, please call the office, , when you return home after surgery to schedule an appointment to be seen in _3__ days. . Current Hospital Diet Patient's current hospital diet: Discharge Diet Recommended Diet: Regular Diet Procedures Procedures Performed: Right Ear [place] Melanoma Excision With Full Thickness Graft Closure Pending Studies Studies pending at discharge: yes List of pending studies: pathology Medical Emergencies . Who to Call and When: Medical Emergencies: If at any time you feel your situation is an emergency, please call 911 immediately. . Non-Emergent Contact Non-Emergency issues call your: Primary Care Provider, Surgeon . "Provider Documentation" section prepared by Dina Pereira. . VTE Core Measure Inpt VTE Proph given/why not?: SCD's [place] Drug Monitoring Program Search Results: no issues identified
[2017-04-19 09:13] VITALS: BP 159/79; O2SAT 95
--- NOTE | 2017-04-20 08:17 | OPERATIVE REPORT ---
DATE OF OPERATION: 04/19/2017 PREOPERATIVE DIAGNOSIS: Right ear helix melanoma in situ. POSTOPERATIVE DIAGNOSIS: Same. PROCEDURE: Excision malignant melanoma in situ right ear helix with placement of full-thickness skin graft. SURGEON: Dr. Ginette Basurto. MILL MANAGER: Dina Pereira PA-C. ANESTHESIA: Local. COMPLICATIONS: None. INDICATION FOR THE PROCEDURE: The patient is an 86-year-old male who was referred to me by Dr. 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 Biopsy showed early evolving melanoma in situ with junctional melanocytic proliferation with severe atypia. BRIEF DESCRIPTION OF THE PROCEDURE: The risks, benefits and alternatives of the procedure were explained to the patient who agreed and signed consent. He was identified and marked in the preoperative holding area. He was brought to the operating room where he was positioned supine and surgical site was prepped and draped sterilely. Surgical site was identified and marked with the patient in the preoperative area. This included prior shave biopsy as well as some surrounding pigmentation which had the appearance of solar lentigo, but given the clinical history, this was marked for excision as well. Given history of early evolving melanoma in situ in a difficult to reconstruct area, I elected to perform this excision with 5 mm margins. After timeout procedure was performed, 1% lidocaine with epinephrine was used to anesthetize the planned incisions. Due to the potential for large size of the defect, I marked the right neck in an area of skin laxity to harvest skin graft. 1% lidocaine with epinephrine was used to anesthetize this area and a 15-blade scalpel was used to make the incision. The graft was harvested in full-thickness fashion. It was defatted using a curved iris scissor by my physician data control assistant while the donor site was closed. Hemostasis was achieved with electrocautery. Wound was reapproximated using 3-0 Vicryl interrupted dermal sutures and 3-0 Monocryl running subcuticular suture, followed by placement of Dermabond. Attention was then turned to excision of the lesion of the right ear helix. This was anesthetized using 1% lidocaine with epinephrine. As mentioned, a 5 mm margin of normal appearing skin was marked for maximal excision of 3 x 2 cm. A 15 blade scalpel was used to make the incision. I attempted to camouflage the anterior aspect of the incision on the internal aspect of the helical rim. A 15 blade scalpel was used to remove the lesion at the level of the perichondrium. Hemostasis was achieved with electrocautery. Specimen was passed off, and full-thickness graft was placed into the recipient site. It was sutured into place using 5-0 chromic interrupted sutures. The excess skin was trimmed. 5-0 silk interrupted tie over bolster sutures were placed, followed by a Xeroform bolster which was formed to the helical rim. Bolster was tied into place. Dry dressings followed by a Beata dressing were applied. The procedure was tolerated well. The patient was transferred to recovery in satisfactory condition. I attest to the content of the Intraoperative Record and any orders documented therein. Any exception s are noted below.
== END | disposition home or self-care (01) ==
LOC: X.SURG 06:05
PROVIDERS: ATTEND Plastic Surgery
DX: D03.21 Melanoma in situ of right ear and external auricular canal (principal); L57.0 Actinic keratosis; Z79.01 Long term (current) use of anticoagulants; Z79.82 Long term (current) use of aspirin; Z82.49 Family history of ischemic heart disease and other diseases of the circulatory system

== ENCOUNTER 2017-05-22 18:42 | Emergency (ER) | payer OTHER, MEDICARE ==
[~2017-05-22] VITALS: Ht 172.7 cm; Wt 93.3 kg
[~2017-05-22 18:42] MED LIST changes: -ACETAMINOPHEN 325 MG TAB PO PRN; -BUPIVACAINE 0.25% 2.5MG/ML PF 10 ML VIAL ONE; -CEFAZOLIN 2000 MG/60 ML D5W IV SCH; -CEFP100T7 PO; -CEPH-571 PO; -CEPH500C2 PO; -DEXAMETHASONE SOD INJ 4 MG/ML VIAL ONE; -FENTANYL CITRATE INJ 50 MCG/1 ML 2 ML VIAL ONE; -GENTIAN VIOLET TOP SOLN DROP CHARGE ONE; -LACTATED RINGER'S 1000ML 1,000 ML IV SCH; -LEVO75TA5 PO; -LIDOCAINE HCL 2% 2 ML VIAL (20MG/ML) ONE; -LIDOCAINE/EPINEPHRINE 1% INJ 50 ML VIAL ONE; -LOSA50TA6 PO; -METOCLOPRAMIDE HCL INJ 5 MG/ML 2 ML VIAL IV PRN; -MIDAZOLAM HCL 1 MG/ML 2ML VIAL ONE; -MULTCAP33 PO; -ONDANSETRON INJ 2 MG/ML 2 ML VIAL IV PRN; -ONDANSETRON INJ 2 MG/ML 2 ML VIAL ONE; -OXYCODONE/ACETAMINOPHEN 5-325 TAB PO PRN; -POVIDONE-IODINE OP SOLN 30 ML BTL ONE; -PROPOFOL IV EMULSION 10 MG/ML 20 ML VIAL IV ONE; -SODIUM CHLORIDE 0.9% 1000ML 1,000 ML IV SCH; -TAMS0.4C38 PO; -WARF5TAB90 PO
[2017-05-22 18:49] VITALS: TEMP 36.6; Ht 172.7 cm; Wt 93.3 kg
[2017-05-22] MEDS ORDERED: SODIUM CHLORIDE 0.9% 1000ML 1,000 ML IV STA ×2 (18:57→21:01)
[2017-05-22] MEDS ORDERED: CEPH500C2 PO (19:04)
[2017-05-22 19:39] LABS: BASO % 0.2 %; BASO ABS # 0.02 K/uL (0-0.2); COMPLETE YES; HEMATOCRIT 44.5 % (42-52); IG% 0.3 %; LYMPH % 19.3 %; LYMPH ABS # 2.29 K/uL (1.2-3.4); MEAN CELL VOLUME 100.9 fL (80-100); MEAN CORPUSCULAR HGB CONC 33.7 g/dl (32-36); MEAN PLATELET VOLUME 9.6 fL (7.4-10.4); MONO % 7.7 %; NEUT % 71.5 %; PLATELET COUNT 204 K/uL (130-400); RED BLOOD COUNT 4.41 M/uL (4.7-6.1); WHITE BLOOD COUNT 11.89 K/uL (4.8-10.8)
[2017-05-22 19:46] LABS: URINE BILIRUBIN NEG (NEG); URINE NITRITE NEG (NEG); URINE PH 5.5 (4.5-7.5); URINE SPECIFIC GRAVITY 1.025 (1.000-1.030); UROBILINOGEN NEG (NEG)
[2017-05-22 19:47] LABS: INR 2.2 (0.9-1.1); PROTHROMBIN TIME (PATIENT) 24.8 SECONDS (9.0-12.0)
[2017-05-22 19:54] LABS: MANUAL MICROSCOPIC REQUIRED? YES; REVIEW REQ? NO
[2017-05-22 19:55] LABS: URINE APPEARANCE BLOODY (CLEAR); URINE COLOR RED
[2017-05-22 19:58] LABS: CALCIUM 9.3 mg/dl (8.5-10.1); CREATININE 1.4 mg/dl (0.60-1.40)
[2017-05-22 20:02] LABS: URINE RBC >30 /hpf (0-4)
[2017-05-22 20:05] LABS: URINE WBC >30 /hpf (0-5)
--- NOTE | 2017-05-22 20:10 | EMERGENCY ROOM VISIT NOTE ---
History Report prepared by Chava: Charlie Armijo Under the Supervision of: Dr. Adan Rasmussen M.D. First contact with patient: 18:53 Chief Complaint: HEMATURIA Stated Complaint: BLOOD IN URINE,PT TAKES WARFARIN History of Present Illness The patient is a 86 year old male who presents to the Emergency Room with complaints of intermittent episodes of hematuria beginning 1.5 hours ago. 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 The patient has no history of similar symptoms. He states that he has been having to urinate every 10 minutes or so since his bleeding began. He notes that he was tested for a UTI earlier today, but had no blood in his urine at that time. The patient had his urine tested due to frequent urination beginning earlier today. He was found to have infection by urinalysis and was started on Keflex. He denies any chest pain, SOB, fevers, chills, abdominal pain, testicular pain, or back pain. The patient is on a diuretic. His most recent INR was 2.0 about four weeks ago. He estimates that he has had four UTIs in his life. Source of History: patient Onset: 1.5 hours ago Symptom Intensity: every 10 minutes Quality: other (hematuria) Timing: intermittent Associated Symptoms: + urinary symptoms (increased frequency), No fevers, No chills, No chest pain, No SOB, No abdominal pain, No back pain Note: The patient denies any testicular pain. Review of Systems See HPI for pertinent positives and negatives. A total of ten systems were reviewed and were otherwise negative. Past Medical & Surgical Medical Problems: (1) Coronary artery disease (2) Hyperlipidemia (3) Hypertension (4) Hypertensive urgency (5) Pulmonary embolism Surgical Problems: (1) H/O percutaneous transluminal coronary angioplasty (2) Stented coronary artery Family History No pertinent family history stated. Social History Smoking Status: Never Smoker Marital Status: Housing Status: lives with family Current/Historical Medications Scheduled Amlodipine (Norvasc), 5 MG PO QAM Aspirin (Aspirin Chewable), 81 MG PO HS Atorvastatin (Lipitor), 80 MG PO QPM Cefpodoxime Proxetil (Cefpodoxime Proxetil), 1 TAB PO BID Cephalexin Monohydrate (Keflex), 500 MG PO BID Levothyroxine Sodium (Levothyroxine Sodium), 1 TAB PO QAM Losartan Potassium (Cozaar), 50 MG PO BID Magnesium Oxide (Magnesium), 1 TAB PO DAILY Metoprolol Tartrate (Lopressor) (Lopressor), 25 MG PO BID Multiple Vitamins W/ Minerals (Preservision Areds), 1 CAP PO BID Coy-3 Fatty Acids (Fish Oil), 1 CAP PO QAM Potassium Chloride (Micro-K Ext Rel), 10 MEQ PO Q2D Tamsulosin Hcl (Flomax), 0.4 MG PO QPM Warfarin Sodium (Coumadin), 5 MG PO 2XWK Warfarin Sodium (Coumadin), 2.5 MG PO 5XWK [Triamterene/Hctz], 0.5 TAB PO QAM Scheduled PRN Nitroglycerin (Nitrostat), 0.4 MG UT UD PRN for Chest Pain Zolpidem Tartrate (Ambien), 5 MG PO HS PRN for Sleep Allergies Coded Allergies: Clindamycin (Verified Allergy, Severe, BP SPIKES, SHAKY, 04/19/17) twitching, spacey Erythromycin (Verified Allergy, Severe, BP SPIKES, SHAKY, 04/19/17) Macrolides (Verified Allergy, Severe, BP SPIKES, SHAKY, 04/19/17) Sulfa Antibiotics (Verified Allergy, Intermediate, BP increases shaky, ) Iodine (Verified Allergy, Unknown, "CAUSED PROBLEMS", 04/19/17) Hydrocodone (Verified Adverse Reaction, Unknown, SLEEPY, 04/19/17) FELT LIKE HE WOULD NEVER AWAKEN Physical Exam Vital Signs Date Time Temp Pulse Resp B/P (MAP) Pulse Ox O2 Delivery O2 Flow Rate FiO2 05/22/17 23:20 76 18 148/92 95 05/22/17 22:06 71 18 162/91 95 Room Air 05/22/17 21:00 84 20 153/84 95 Room Air 05/22/17 18:49 36.6 84 18 170/92 96 Room Air Physical Exam GENERAL: Awake, alert, well-appearing, in no distress HENT: Normocephalic, atraumatic. Oropharynx unremarkable. Dry mucous membranes. EYES: Normal conjunctiva. Sclera non-icteric. NECK: Supple. No nuchal rigidity. FROM. No JVD. RESPIRATORY: Clear to auscultation. CARDIAC: Regular rate, normal rhythm. Extremities warm and well perfused. Pulses equal. ABDOMEN: Soft, non-distended. No tenderness to palpation. No rebound or guarding. No masses. : Scant evidence of gross hematuria in the genital area but no active bleeding. RECTAL: Deferred. MUSCULOSKELETAL: Chest examination reveals no tenderness. The back is symmetrical on inspection without obvious abnormality. There is no CVA tenderness to palpation. No joint edema. LOWER EXTREMITIES: Calves are equal size bilaterally and non-tender. No edema. No discoloration. NEURO: Normal sensorium. No sensory or motor deficits noted. SKIN: No rash or jaundice noted. Medical Decision & Procedures Laboratory Results 05/22/17 19:15 Red Blood Count 4.41, Mean Corpuscular Volume 100.9, Mean Corpuscular Hemoglobin 34.0, Mean Corpuscular Hemoglobin Concent 33.7, Mean Platelet Volume 9.6, Neutrophils (%) (Auto) 71.5, Lymphocytes (%) (Auto) 19.3, Monocytes (%) ( Auto) 7.7, Eosinophils (%) (Auto) 1.0, Basophils (%) (Auto) 0.2, Neutrophils # ( Auto) 8.51, Lymphocytes # (Auto) 2.29, Monocytes # (Auto) 0.91, Eosinophils # ( Auto) 0.12, Basophils # (Auto) 0.02 05/22/17 19:15 Test 05/22/17 19:05 05/22/17 19:15 Urine Color RED Urine Appearance BLOODY (CLEAR) Urine pH 5.5 (4.5-7.5) Urine Specific [place] 1.025 (1.000-1.030) Urine Protein 3+ (NEG) Urine Glucose (UA) NEG (NEG) Urine Ketones TRACE (NEG) Urine Occult Blood 3+ (NEG) Urine Nitrite NEG (NEG) Urine Bilirubin NEG (NEG) Urine Urobilinogen NEG (NEG) Urine Leukocyte Esterase SMALL (NEG) Urine WBC (Auto) /hpf (0-5) Urine RBC (Auto) /hpf (0-4) Urine Hyaline Casts (Auto) /lpf (0-5) Urine Epithelial Cells (Auto) /lpf (0-5) Urine Bacteria (Auto) (NEG) Urine RBC >30 /hpf (0-4) Urine WBC >30 /hpf (0-5) Urine Epithelial Cells >30 /lpf (0-5) Urine Bacteria NEG (NEG) White Blood Count 11.89 K/uL (4.8-10.8) Red Blood Count 4.41 M/uL (4.7-6.1) Hemoglobin 15.0 g/dL (14.0-18.0) Hematocrit 44.5 % (42-52) Mean Corpuscular Volume 100.9 fL (80-100) Mean Corpuscular Hemoglobin 34.0 pg (25-34) Mean Corpuscular Hemoglobin Concent 33.7 g/dl (32-36) Platelet Count 204 K/uL (130-400) Mean Platelet Volume 9.6 fL (7.4-10.4) Neutrophils (%) (Auto) 71.5 % Lymphocytes (%) (Auto) 19.3 % Monocytes (%) (Auto) 7.7 % Eosinophils (%) (Auto) 1.0 % Basophils (%) (Auto) 0.2 % Neutrophils # (Auto) 8.51 K/uL (1.4-6.5) Lymphocytes # (Auto) 2.29 K/uL (1.2-3.4) Monocytes # (Auto) 0.91 K/uL (0.11-0.59) Eosinophils # (Auto) 0.12 K/uL (0-0.5) Basophils # (Auto) 0.02 K/uL (0-0.2) RDW Standard Deviation 49.4 fL (36.4-46.3) RDW Coefficient of Variation 13.4 % (11.5-14.5) Immature Granulocyte % (Auto) 0.3 % Immature Granulocyte # (Auto) 0.04 K/uL (0.00-0.02) Prothrombin Time 24.8 SECONDS (9.0-12.0) Prothromb Time International Ratio 2.2 (0.9-1.1) Anion Gap 8.0 mmol/L (3-11) Est Creatinine Clear Calc Drug Dose 43.5 ml/min Estimated GFR () 53.1 Estimated GFR (Non- 45.8 BUN/Creatinine Ratio 18.0 (10-20) Calcium Level 9.3 mg/dl (8.5-10.1) Prostate Specific Antigen 1.150 ng/ml (0.000-4.000) Laboratory results reviewed by me Medications Administered Medications (Trade) Dose Ordered Sig/Yakov Route Start Time Stop Time Status Last Admin Dose Admin Sodium Chloride 1,000 ml @ 999 mls/hr Q1H1M STAT IV 05/22/17 18:57 05/22/17 19:57 DC 05/22/17 19:21 999 MLS/HR Prednisone (PredniSONE TAB) 60 mg NOW STAT PO 05/22/17 19:42 05/22/17 19:44 DC 05/22/17 20:06 60 MG Diphenhydramine HCl (Benadryl Cap) 25 mg NOW ONCE PO 05/22/17 19:45 05/22/17 19:46 DC 05/22/17 20:06 25 MG Ceftriaxone Sodium (Rocephin Inj) 1 gm NOW STAT IV 05/22/17 21:01 05/22/17 21:03 DC 05/22/17 21:36 1 GM Sodium Chloride 1,000 ml @ 999 mls/hr Q1H1M STAT IV 05/22/17 21:01 05/22/17 22:01 DC 05/22/17 21:35 999 MLS/HR ED Course 1853: The patient was evaluated in room C11B. A complete history and physical exam was performed. 1856: Ordered Sodium Chloride 1000 ml @ 999 mls/hr IV. 1941: Ordered Prednisone Tab 60 mg PO. 1944: Ordered Benadryl Cap 25 mg PO. Medical Decision I reviewed the patient's past medical history, medications, and the nursing notes as described above. The patient's presentation and history were concerning for hemorrhagic cystitis , kidney stone, and malignancy. 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 Arrival the patient is well-appearing and no acute distress. He is afebrile with stable vital signs. On exam he has dry mucous membranes but otherwise abdomen is soft nontender without any suprapubic fullness. Urine sample has gross blood visualized. Considering the patient's age differential as described above. We will obtain CT scan to evaluate for malignancy however anticipate that the patient will need close urology follow-up for likely cystoscopy. Otherwise patient's INR is therapeutic 2.2. H&H is 15/44 . The patient has no urinary retention at this time thus no indication for CBI. CT scan negative for any signs of malignancy, renal stones, or hydroureteronephrosis although patient does have an enlarged prostate. Creatinine slightly elevated from recent however patient does appear clinically dry. Patient given IV fluid hydration and subsequently reports resolution of his hematuria. Discussed the case with Dr. Harrison, urology, who will work to see the patient in the next couple of days. However recommends that patient stop his Coumadin despite his history of PE considering that the more immediate risk at this time is his active bleeding. And otherwise recommends antibiotics and urine culture, both of which have already been done. During patient was given ceftriaxone IV in the emergency department will continue the patient on Cefpodoxime for continuity was spectrum. I discussed with the patient he risk and benefits regarding his Coumadin and his hematuria and the patient is agreeable to hold his Coumadin at this time. Considering improving hematuria and reassuring HCT no need for vitamin K at this time. Additionally he is agreeable with the plan as described above with follow-up with urology in the next couple of days. Management also involved assisting with arranging neurology follow-up. Medication Reconcilliation Current Medication List: was personally reviewed by me Blood Pressure Screening Patient's blood pressure: Elevated blood pressure Blood pressure disposition: Referred to PCP Impression Primary Impression: Hematuria, gross Additional Impression: Hemorrhagic cystitis Scribe Attestation The scribe's documentation has been prepared under my direction and personally reviewed by me in its entirety. I confirm that the note above accurately reflects all work, treatment, procedures, and medical decision making performed by me. Departure Information Dispostion Home / Self-Care Prescriptions Cefpodoxime Proxetil (CEFPODOXIME PROXETIL) 100 Mg Tab 1 TAB PO BID for 7 Days, #14 TABS Prov: Adan Rasmussen M.D. 05/22/17 Referrals Estiven Malone, D.O. (PCP) Sreedhar Harrison M.D. Patient Instructions ED Hematuria, ED UTI Cystitis Male, Hematuria Poss Causes, My [facility] Additional Instructions Please follow up with your primary care physician in the next 1-3 days for re- evaluation and to repeat your kidney function test and INR as well as with urology, Dr. Harrison, within the next 2 days for likely cystoscopy. Discontinue your coumadin as discussed until you are seen by urology. Antibiotics as directed. Otherwise, your exam, lab results, and CT scan did not show signs of an emergent condition at this time. Return to the emergency department for worsening symptoms as described in the accompanying instructions. Problem Qualifiers
[2017-05-22 20:11] LABS: URINE BACTERIA NEG (NEG)
[2017-05-22 20:12] LABS: ZZUR CULT IF INDIC CLEAN CATCH YES
--- NOTE | 2017-05-22 20:56 | DIAGNOSTIC IMAGING REPORT ---
CT SCAN OF THE ABDOMEN AND PELVIS WITH IV CONTRAST CLINICAL HISTORY: Gross hematuria. COMPARISON STUDY: No priors. TECHNIQUE: Following the IV administration of 92 cc of Optiray 320, CT scan of the abdomen and pelvis is performed from the lung bases to the proximal femora. Images are reviewed in the axial, sagittal, and coronal planes. IV contrast was administered without complication. Automated dose control exposure was utilized. A dose lowering technique was utilized adhering to the principles of ALARA. CT DOSE: 683.10 mGy.cm FINDINGS: Lung bases: The heart is top normal in size and without pericardial effusion. The coronary arteries are densely calcified. There is a fat-containing Bochdalek hernia seen at both lung bases. Scarring versus atelectasis is present lower lobes. No airspace consolidation or pleural effusion is seen. There is a tiny hiatal hernia. Liver: The contrast-enhanced liver is normal in size, contour, and attenuation. There is no intrahepatic biliary ductal dilatation. The hepatic veins and portal veins are patent. 2 cysts are seen in the right lobe and measure up to 12 mm. Gallbladder: Unremarkable. Spleen: Normal in size and attenuation. Pancreas: Moderately atrophic and grossly unremarkable. Adrenal glands: Unremarkable. Kidneys: The contrast enhanced kidneys are atrophic and without hydronephrosis. The kidneys enhance symmetrically. There is no evidence of enhancing mass lesion. No renal calculi are seen on this contrast-enhanced examination. Abdominal vasculature: The abdominal aorta is normal in course and caliber noting moderate to advanced atherosclerotic calcification. Bowel: The small bowel and colon are normal in course and caliber. There are scattered colonic diverticula without CT evidence of acute diverticulitis. The appendix is well-visualized and normal. Peritoneum: There is no intraperitoneal free air or abdominal ascites. There is a small fat-containing umbilical hernia. Lymphadenopathy: None. Pelvic viscera: The prostate gland is mildly enlarged and heterogeneous, measuring 5.1 cm in transverse diameter. The bladder wall appears thickened and trabeculated. The bladder wall is hyperemic and there is mild pericystic stranding. The seminal vesicles are normal as imaged. A fat-containing inguinal hernia is seen on the left. Skeletal structures: The skeletal structures are osteopenic. Moderate lumbosacral spondylosis is observed. No lytic or blastic lesions are seen. IMPRESSION: 1. Findings suggest cystitis. Correlation with clinical findings and urinalysis will be required. 2. 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 3. No enhancing renal mass is identified. There is no evidence of nephrolithiasis on this contrast-enhanced examination. 4. Additional findings as above. Electronically signed by: Prabhu Petersen M.D. 05/22/2017 8:54 PM Dictated Date/Time: 05/22/2017 8:47 PM
[2017-05-22] MEDS ORDERED: CEFTRIAXONE SOD INJ 1 GM ADDVIAL IV STA (21:01)
[2017-05-22] MEDS ORDERED: CEFP100T7 PO (21:34)
[2017-05-22] MEDS ORDERED: MULTCAP33 PO (22:16)
[2017-05-22 23:20] VITALS: BP 148/92; PULSE 76; O2SAT 95
[2017-05-22] MEDS ORDERED: LEVO75TA5 PO (23:41)
[2017-05-22] MEDS ORDERED: LOSA50TA6 PO (23:44)
[2017-05-22] MEDS ORDERED: TAMS0.4C38 PO (23:44)
[2017-05-22] MEDS ORDERED: WARF5TAB90 PO ×2 (23:47)
--- NOTE | 2017-05-24 13:51 | Pharmacy Progress Note ---
ED Pharmacist Culture FollowUp Date of Service: May 24, 2017. Patient was sent home with a prescription for cefpodoxime, which should cover the Klebsiella pneumoniae growing from the patient's urine culture, based on reported sensitivity to ceftriaxone.
== END 2017-05-22 23:23 | disposition home or self-care (01) ==
LOC: C.EDB 18:44 → C.EDC 23:23
DX: N30.91 Cystitis, unspecified with hematuria (principal); E78.5 Hyperlipidemia, unspecified; I10 Essential (primary) hypertension; I25.10 Atherosclerotic heart disease of native coronary artery without angina pectoris; Z86.711 Personal history of pulmonary embolism; Z98.61 Coronary angioplasty status; Z79.82 Long term (current) use of aspirin; Z79.01 Long term (current) use of anticoagulants; Z79.899 Other long term (current) drug therapy; Z88.2 Allergy status to sulfonamides; Z88.3 Allergy status to other anti-infective agents; Z88.5 Allergy status to narcotic agent; Z88.8 Allergy status to other drugs, medicaments and biological substances

== ENCOUNTER → 2017-05-24 | Outpatient (CLI) | payer OTHER, MEDICARE ==
[~2017-05-24] MED LIST changes: +CEFP100T7 PO; +CEPH500C2 PO; +LEVO75TA5 PO; +LOSA50TA6 PO; +MULTCAP33 PO; +TAMS0.4C38 PO; +WARF5TAB90 PO
== END | disposition home or self-care (01) ==
LOC: C.LABSPEC 14:56
PROVIDERS: ATTEND Urology
DX: R31.0 Gross hematuria (principal)

== ENCOUNTER → 2018-05-01 | Day surgery (SDC) | payer OTHER, MEDICARE ==
[2018-04-24 09:09] VITALS: BMI 32.0
[~2018-05-01] VITALS: Ht 167.6 cm; Wt 90.9 kg
[~2018-05-01] MED LIST changes: -AMLO-110 PO; +AMLO5TAB3 PO; -CEFP100T7 PO; -CEPH500C2 PO; +FINA5TAB PO; +LIDOCAINE HCL 2% 2 ML VIAL (20MG/ML) ONE; +MAGN1TAB19 PO; -MAGN250T22 PO; -OMEG1CAP84 PO; +PRLSR20 PO; +PROPOFOL IV EMULSION 10 MG/ML 20 ML VIAL ONE; +SODIUM CHLORIDE 0.9% 500ML 500 ML IV ONE; -TRIAMTERENE/HCTZ PO; +TRIATAB3 PO
[2018-05-01 10:07] VITALS: Ht 167.6 cm; Wt 90.9 kg
[2018-05-01 10:08] VITALS: TEMP 36.7
--- NOTE | 2018-05-01 10:29 | Endo History and Physical ---
History & Physical Date of Service: May 01, 2018. Chief Complaint: DYSPHAGIA Referring Physician: DR. DESTINEY SCHWARTZ History of Present Illness Schatzki ring with history of food impaction. Past Surgical History Hx Cardiac Surgery: Yes (HEART CATH X 2/2 STENTS PLACED) Hx Internal Defibrillator: No Hx Pacemaker: No Hx Abdominal Surgery: Yes (INGUINAL HERNIA) Hx of Implantable Prosthesis: No Hx Post-Op Nausea and Vomiting: No Hx Cancer Surgery: Yes (MELANOMA REMOVED R EAR) Hx Thoracic Surgery: No Hx Orthopedic: No Hx Urinary Tract Surgery: No Family History None Social History Smoking Status: Never Smoker Hx Substance Use: No Hx Alcohol Use: Yes (2-3 GLASSES WINE WITH DINNER ) Allergies Coded Allergies: Clindamycin (Verified Allergy, Severe, BP SPIKES, SHAKY, 05/01/18) twitching, spacey Erythromycin (Verified Allergy, Severe, BP SPIKES, SHAKY, 05/01/18) Macrolides (Verified Allergy, Severe, BP SPIKES, SHAKY, 05/01/18) Sulfa Antibiotics (Verified Allergy, Intermediate, BP increases shaky, 05/01) Trimethoprim (Verified Allergy, Mild, BP SPIKES, SHAKES, 05/01/18) Iodine (Verified Allergy, Unknown, "CAUSED PROBLEMS", 05/01/18) Hydrocodone (Verified Adverse Reaction, Unknown, SLEEPY, 05/01/18) FELT LIKE HE WOULD NEVER AWAKEN Current Medications Reported Home Medications Medications Dose Route/Sig Max Daily Dose Days Date Category Dose Instructions Prilosec (Omeprazole) 20 Mg Capcr 20 Mg PO BID 04/24/18 Reported Magnesium Oxide (Magnesium Oxide (Mg Supplement) 400 Mg Tab 1 Tab PO DAILY 04/24/18 Reported Triamterene/Hctz 37.5-25MG (Triamterene/HCTZ) 1 Tab Tab 0.5 Tab PO DAILY 04/19/18 Reported Proscar (Finasteride) 5 Mg Tab 5 Mg PO DAILY 04/19/18 Reported Aspirin Chewable (Aspirin) 81 Mg Chew 81 Mg PO Q2D 04/11/17 Reported Coumadin (Warfarin Sodium) 5 Mg Tab 2.5 Mg PO 5XWK 03/04/17 Reported TAKE DAILY ON SUN//SAT//SAT Coumadin (Warfarin Sodium) 5 Mg Tab 5 Mg PO 2XWK 03/04/17 Reported TAKE DAILY ON SATURDAY & SATURDAY Cozaar (Losartan Potassium) 50 Mg Tab 50 Mg PO BID 03/04/17 Reported Flomax (Tamsulosin Hcl) 0.4 Mg Cap 0.4 Mg PO QPM 03/04/17 Reported Levothyroxine Sodium 75 Mcg Tab 1 Tab PO QAM 03/04/17 Reported Preservision Areds (Multiple Vitamins W/ Minerals) 1 Cap Cap 1 Cap PO BID 01/27/14 Reported Nitrostat (Nitroglycerin) 0.4 Mg Sub 0.4 Mg UT UD PRN 07/15/13 Reported Ambien (Zolpidem Tartrate) 5 Mg Tab 5 Mg PO HS PRN 07/15/13 Reported Lipitor (Atorvastatin Calcium) 80 Mg Tab 80 Mg PO QPM 07/15/13 Reported Micro-K Ext Rel (Potassium Chloride) 10 Meq Capcr 10 Meq PO Q2D 04/29/07 Reported TAKE ON ODD DAYS. TAKES 4 DAYS PER WEEK. Lopressor (Metoprolol Tartrate) 50 Mg Tab 25 Mg PO BID 04/29/07 Reported Norvasc (Amlodipine Besylate) 5 Mg Tab 5 Mg PO QAM 04/21/07 Reported Vital Signs Weight (Kilograms): 90.91 Height (Feet): 5 Height (Inches): 6 Date Time Temp Pulse Resp B/P (MAP) Pulse Ox O2 Delivery O2 Flow Rate FiO2 05/01/18 10:08 36.7 58 20 149/100 (116) 96 Room Air Physical Exam General Appearance: WD/WN, no apparent distress Respiratory/Chest: Auscultation: breath sounds normal, no wheezing, no rales/crackles Cardiovascular: Heart Auscultation: RRR, no murmurs Abdomen: Inspection & Palpation: soft, no tenderness, guarding & rebound Assessment and Plan EGD ithe dilation.
--- NOTE | 2018-05-01 10:54 | GI REPORT ---
Patient Name: Mark Musa Procedure Date: 05/01/2018 10:36 AM Date of : 1930 Admit Type: Outpatient Age: 87 Gender: Male Attending MD: Sebastian Fajardo MD Procedure: Upper GI endoscopy Providers: Sebastian Fajardo MD Referring MD: Garima Muñoz MD, Estiven Malone Indications: Dysphagia Medicines: Propofol per Anesthesia Complications: No immediate complications. Estimated blood loss: None. Estimated Blood Loss: Estimated blood loss: none. Procedure: Pre-Anesthesia Assessment: - Prior to the procedure, a History and Physical was performed, and patient medications, allergies and sensitivities were reviewed. The patient's tolerance of previous anesthesia was reviewed. - ASA Grade Assessment: III - A patient with severe systemic disease. After obtaining informed consent, the endoscope was passed under direct vision. Throughout the procedure, the patient's blood pressure, pulse, and oxygen saturations were monitored continuously. The scope was introduced through the mouth, and advanced to the third part of duodenum. The upper GI endoscopy was accomplished with ease. The patient tolerated the procedure well. Findings: The upper third of the esophagus, middle third of the esophagus and lower third of the esophagus were normal. One benign-appearing, intrinsic stenosis was found at the gastroesophageal junction. This stenosis was mildly severe and measured 1.7 cm (inner diameter). The stenosis was traversed. A guidewire was placed and the scope was withdrawn. Dilation was performed with a Savary dilator with no resistance at 16 mm and mild resistance at 18 mm. The dilation site was examined following endoscope reinsertion and showed a very small mucosal tear. A small hiatal hernia was present. Localized erythematous mucosa was found on the greater curvature of the stomach. The examined duodenum was normal. Impression: - Normal upper third of esophagus, middle third of esophagus and lower third of esophagus. - Benign-appearing esophageal stenosis. Dilated. - Small hiatal hernia. - Erythematous mucosa in the greater curvature. - Normal examined duodenum. - No specimens collected. Recommendation: - Resume Coumadin (warfarin) at prior dose today. Sebastian Fajardo M.D. Sebastian Fajardo MD 05/01/2018 10:53:41 AM This report has been signed electronically. Note Initiated On: 05/01/2018 10:36 AM Number of Addenda: 0 I attest to the content of the Intraoperative Record and orders documented therein, exceptions below {[id number]}
--- NOTE | 2018-05-01 10:55 | Discharge Instructions ---
Endoscopy Patient Instructions Date / Procedure(s) Performed May 01, 2018. EGD Allergy Information Coded Allergies: Clindamycin (Verified Allergy, Severe, BP SPIKES, SHAKY, 05/01/18) twitching, spacey Erythromycin (Verified Allergy, Severe, BP SPIKES, SHAKY, 05/01/18) Macrolides (Verified Allergy, Severe, BP SPIKES, SHAKY, 05/01/18) Sulfa Antibiotics (Verified Allergy, Intermediate, BP increases shaky, 05/01) Trimethoprim (Verified Allergy, Mild, BP SPIKES, SHAKES, 05/01/18) Iodine (Verified Allergy, Unknown, "CAUSED PROBLEMS", 05/01/18) Hydrocodone (Verified Adverse Reaction, Unknown, SLEEPY, 05/01/18) FELT LIKE HE WOULD NEVER AWAKEN Discharge Date / Findings May 01, 2018. 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 Continue omeprazole for one month. Provider Instructions Activity Restrictions - No exercising or heavy lifting for 24 hours. - Do not drink alcohol the day of the procedure. - Do not drive a car or operate machinery until the day after the procedure. - Do not make any important decisions or sign important papers in 24 hours after the procedure. Following Day: - Return to full activity which may include returning to work/school. Diet Start your diet with liquids and light foods (jello, soup, juice, toast). Then eat your usual diet if not nauseated. Treatment For Common After Affects For mild abdominal pain, bloating, or excessive gas: - Rest - Eat lightly - Lie on right side Follow-Up Information Follow-up with DR. DESTINEY SCHWARTZ as scheduled Anesthesia Information What You Should Know You have had a procedure that required some medicine to reduce anxiety and discomfort. This treatment is called moderate sedation. After receiving the treatment, you may be sleepy, but you will be able to breathe on your own. The effects of the treatment may last for several hours. Follow these instructions along with Activity/Diet recommendations noted above: * Do NOT do anything where dizziness or clumsiness would be dangerous. * Rest quietly at home today, then you can be up and about tomorrow. * Have a responsible person stay with you the rest of today. * You may have had an I.V. today. If so, you may take the dressing off later today. Recommendations Call your doctor if: * Trouble breathing * Continuous vomiting for more than 24 hours * Temperature above 101 degrees * Severe abdominal pain or bloating * Pain not relieved by pain medicine ordered * There is increased drainage or redness from any incision * A large amount of rectal bleeding greater than 2-3 tablespoons. (If you had a polyp/s removed or have hemorrhoids, a small amount of blood - from the rectum is to be expected.) * You have any unanswered questions or concerns. IN THE EVENT OF A SERIOUS EMERGENCY, GO TO THE NEAREST EMERGENCY ROOM Your discharge instructions were prepared by provider Sebastian Fajardo. Patient Instructions Signature Page Mark Musa Patient (or Guardian) Signature/Date: I have read and understand the instructions given to me by my caregivers. Caregiver/RN/Doctor Signature/Date: The above-named patient and/or guardian has received patient instructions on this date. + Original Patient Signature Page (only) stays with chart. Please make copy for patient.
--- NOTE | 2018-05-01 11:21 | Anesthesiology Progress Note ---
Anesthesia Post Op Note Date & Time May 01, 2018 at 11:21 Vital Signs Pain Intensity: 0 Vital Signs Past 12 Hours Date Time Temp Pulse Resp B/P (MAP) Pulse Ox O2 Delivery O2 Flow Rate FiO2 05/01/18 11:11 58 18 144/80 (101) 96 Room Air 05/01/18 10:56 62 16 98/67 (77) 99 Room Air 05/01/18 10:08 36.7 58 20 149/100 (116) 96 Room Air Notes Mental Status: alert / awake / arousable, participated in evaluation Pt Amnestic to Procedure: Yes Nausea / Vomiting: adequately controlled Pain: adequately controlled Airway Patency, RR, SpO2: stable & adequate BP & HR: stable & adequate Hydration State: stable & adequate Anesthetic Complications: no major complications apparent
[2018-05-01 11:26] VITALS: BP 143/82; PULSE 56; O2SAT 97
== END | disposition home or self-care (01) ==
LOC: C.GI 09:34
PROVIDERS: ATTEND Internal Medicine Gastroenterology
DX: R13.10 Dysphagia, unspecified (principal); K22.2 Esophageal obstruction; K44.9 Diaphragmatic hernia without obstruction or gangrene; L53.9 Erythematous condition, unspecified; I10 Essential (primary) hypertension; M19.90 Unspecified osteoarthritis, unspecified site; I25.2 Old myocardial infarction; Z85.820 Personal history of malignant melanoma of skin; Z88.1 Allergy status to other antibiotic agents; Z88.2 Allergy status to sulfonamides; Z88.8 Allergy status to other drugs, medicaments and biological substances; Z79.01 Long term (current) use of anticoagulants; Z79.899 Other long term (current) drug therapy; Z79.82 Long term (current) use of aspirin; Z86.711 Personal history of pulmonary embolism

== ENCOUNTER 2020-05-06 05:02 | Inpatient (IN) ==
--- NOTE | 2020-04-11 16:33 | PAT Medication Instructions ---
Medication Instructions Date of Service April 11, 2020 Home Medications Medication Instructions Recorded 3-in-1 Commode #1 ea 11/27/19 3-in-1 Commode #1 ea 11/27/19 acetaminophen 325 mg capsule 650 mg PO QID PRN buspirone 5 mg tablet 5 mg PO BID magnesium 250 mg tablet 400 mg PO BID melatonin 1 mg tablet 5 mg PO HS nitroglycerin 0.4 mg sublingual tablet 0.4 mg SL Q5M PRN omeprazole 20 mg capsule,delayed release 20 mg PO QAM potassium chloride 10 mEq tablet,extended release 10 meq PO Q OTHER DAY triamterene 37.5 mg-hydrochlorothiazide 25 mg tablet 0.5 tab PO QAM vitamin B complex 1 tab PO QAM vitamins A,C,O-jlkx-taycar 14,320 unit-226 mg-200 unit capsule 1 cap PO BID amlodipine 5 mg tablet 5 mg PO QAM finasteride 5 mg tablet 5 mg PO QAM levothyroxine 137 mcg tablet 75 mcg PO QAM losartan 100 mg tablet 50 mg PO BID metoprolol tartrate 75 mg tablet 25 mg PO BID tamsulosin 0.4 mg capsule 0.4 mg PO PM warfarin 5 mg tablet 5 mg PO 2XWK aspirin [Aspir-81] 81 mg PO Q OTHER DAY atorvastatin [Lipitor] 80 mg PO PM warfarin 2.5 mg PO 5XWK Continue as directed nitroglycerin 0.4 mg sublingual tablet 0.4 mg SL Q5M PRN ASK your prescriber and surgeon warfarin 5 mg tablet 5 mg PO 2XWK warfarin 2.5 mg PO 5XWK STOP taking 2 weeks before surgery If surgery is within 2 weeks, stop taking as soon as possible. vitamins A,C,Y-waha-zkiyat 14,320 unit-226 mg-200 unit capsule 1 cap PO BID DO NOT take the morning of surgery acetaminophen 325 mg capsule 650 mg PO QID PRN magnesium 250 mg tablet 400 mg PO BID potassium chloride 10 mEq tablet,extended release 10 meq PO Q OTHER DAY triamterene 37.5 mg-hydrochlorothiazide 25 mg tablet 0.5 tab PO QAM vitamin B complex 1 tab PO QAM losartan 100 mg tablet 50 mg PO BID Take morning of surgery With a small sip of water, OTHERWISE NOTHING TO EAT OR DRINK AFTER MIDNIGHT: buspirone 5 mg tablet 5 mg PO BID omeprazole 20 mg capsule,delayed release 20 mg PO QAM amlodipine 5 mg tablet 5 mg PO QAM finasteride 5 mg tablet 5 mg PO QAM levothyroxine 137 mcg tablet 75 mcg PO QAM metoprolol tartrate 75 mg tablet 25 mg PO BID aspirin [Aspir-81] 81 mg PO Q OTHER DAY (if scheduled) Take evening before surgery acetaminophen 325 mg capsule 650 mg PO QID PRN (if needed) buspirone 5 mg tablet 5 mg PO BID magnesium 250 mg tablet 400 mg PO BID melatonin 1 mg tablet 5 mg PO HS losartan 100 mg tablet 50 mg PO BID metoprolol tartrate 75 mg tablet 25 mg PO BID tamsulosin 0.4 mg capsule 0.4 mg PO PM atorvastatin [Lipitor] 80 mg PO PM Other Notes If you have any questions please call us at [phone] or [phone] or [phone] or [phone]
--- NOTE | 2020-04-12 09:40 | Anesthesiology Consultation ---
Date of Service April 12, 2020 Assessment & Plan (1) Encounter for pre-operative examination: COVID Status: As of 04/12 assessment, patient denies travel to endemic area, known exposure/sick contacts, or symptoms of COVID19. Patient instructed to follow strict social distancing guidelines, wear a mask in public and avoid travel for 14 days prior to surgery. Preoperative COVID19 testing to be completed prior to surgery. Patient made aware to self-isolate as much as possible between COVID testing and surgery. Cardiology Clearance 12/04/19 = "if dobutamine stress echocardiography is okay, he would be considered a moderate acceptable risk." I recommend uninterrupted continuation of metoprolol, amlodipine, and aspirin throughout the perioperative period if able... Mr. Musa is prescribed chronic Coumadin anticoagulation due to history of DVT and bilateral PE back in 1991. He has interrupted Coumadin multiple times for procedures, without Lovenox bridge, and prefers the same this time; he is aware of the associated risk." *DSE was normal with evidence of ischemia. Patient noted to have irregular rhythm on exam so EKG was performed, which showed obvious P waves and frequent PVCs. EKG not transmitted, just done to r/o afib. Chart Review Chart Review: Acceptable Risk for Surgery and Patient seen in Pre Admission Testing Teaching & Discussion Instructed NPO after midnight before surgery, except medications with 15 cc of water. Medication instructions provided according to the PAT guidelines. History Surgery Operation Date: 05/06/20 08:50 Proposed Procedures p Left Total Hip Arthroplasty - Guicho Myers MD Height/Weight Height: 5 ft 6 in Weight: 93.3 kg Allergies Allergy/AdvReac Type Severity Reaction Status Date / Time clindamycin Allergy Severe BP SPIKES, Verified 04/05/20 10:19 SHAKY erythromycin base Allergy Severe BP SPIKES, Verified 04/05/20 10:19 SHAKY Macrolide Antibiotics Allergy Severe BP SPIKES, Verified 04/05/20 10:19 SHAKY Sulfa (Sulfonamide Allergy Intermediate BP Verified 04/05/20 10:19 Antibiotics) increases shaky trimethoprim Allergy Mild BP SPIKES, Verified 04/05/20 10:19 SHAKES iodine Allergy Unknown "CAUSED Verified 04/05/20 10:19 PROBLEMS" hydrocodone AdvReac Unknown SLEEPY Verified 04/05/20 10:19 Medications Home Medications Medication Instructions Recorded Confirmed Last Taken 3-in-1 Commode #1 ea 11/27/19 04/05/20 Unknown 3-in-1 Commode #1 ea 11/27/19 04/05/20 Unknown acetaminophen 325 mg capsule 650 mg PO QID PRN 11/27/19 04/05/20 Unknown buspirone 5 mg tablet 5 mg PO BID 11/27/19 04/05/20 Unknown magnesium 250 mg tablet 400 mg PO BID 11/27/19 04/05/20 Unknown melatonin 1 mg tablet 5 mg PO HS 11/27/19 04/05/20 Unknown nitroglycerin 0.4 mg sublingual 0.4 mg SL Q5M PRN 11/27/19 04/05/20 Unknown tablet omeprazole 20 mg capsule,delayed 20 mg PO QAM 11/27/19 04/05/20 Unknown release potassium chloride 10 mEq 10 meq PO Q OTHER DAY 11/27/19 04/05/20 Unknown tablet,extended release triamterene 37.5 0.5 tab PO QAM 11/27/19 04/05/20 Unknown mg-hydrochlorothiazide 25 mg tablet vitamin B complex 1 tab PO QAM 11/27/19 04/05/20 Unknown vitamins A,C,O-khiz-mmsbyx 14,320 1 cap PO BID 11/27/19 04/05/20 Unknown unit-226 mg-200 unit capsule amlodipine 5 mg tablet 5 mg PO QAM 01/26/20 04/05/20 Unknown finasteride 5 mg tablet 5 mg PO QAM 01/26/20 04/05/20 Unknown levothyroxine 137 mcg tablet 75 mcg PO QAM 01/26/20 04/05/20 Unknown losartan 100 mg tablet 50 mg PO BID 01/26/20 04/05/20 Unknown metoprolol tartrate 75 mg tablet 25 mg PO BID 01/26/20 04/05/20 Unknown tamsulosin 0.4 mg capsule 0.4 mg PO PM 01/26/20 04/05/20 Unknown warfarin 5 mg tablet 5 mg PO 2XWK 01/26/20 04/05/20 Unknown aspirin [Aspir-81] 81 mg PO Q OTHER DAY 04/05/20 04/05/20 Unknown atorvastatin [Lipitor] 80 mg PO PM 04/05/20 04/05/20 Unknown warfarin 2.5 mg PO 5XWK 04/05/20 04/05/20 Unknown Past Medical History Medical History Anxiety BPH (benign prostatic hyperplasia) Coronary artery disease (Chronic) s/p [place] x 2 2010 to LAD GERD (gastroesophageal reflux disease) Hx of colonic polyps Hyperlipidemia Hypertension Hypothyroidism Osteoarthritis Pulmonary embolism BILAT 1991> ON WARFARIN PVC (premature ventricular contraction) OCCASIONAL > SEES [facility] Spinal stenosis Exercise / Class Metabolic Activity II 4-5 Yardwork/Stairs/Walk up hill (Does stairs daily and does have mild CONDON but no chest pain) Past Surgical History Surgical History H/O angioplasty SEP 1996> [place] NOVEMBER 2010 > 2 STENTS History of colonoscopy History of esophagogastroduodenoscopy (EGD) History of heart artery stent X2 IN 2010 IN [place] History of rectal surgery YRS AGO> SMALL CYST Hx of bilateral cataract extraction Hx of inguinal hernia repair Hx of melanoma excision RIGHT EAR Past Anesthesia History No Hx of Anesthesia Complications and No Family Hx of Anesthesia Complications History of PONV No Hx of PONV and No Hx of Motion Sickness Social History Smoking Status: Never smoker Do You Dip or Chew Tobacco: No Hx Alcohol Use: Yes Alcohol type: wine alcohol intake frequency: 3 or more drinks per day Alcohol Intake Frequency Comment: 2-3 WITH DINNER Hx Substance Use: No Review of Systems Pt denies any recent chest pain, shortness of breath, cough, fever or URI. Rare palpitations. Physical Exam Vital Signs BP: 131/59 P: 48bpm (pt asymptomatic) SPO2: 96% RA T: 97.8 F R: 16 ENMT Mouth: no dental restorations, no chipped teeth and no loose teeth Thyromental Distance: > or= 3.5 Finger Breadths (4) Mallampati Class: I Neck normal visual inspection; neck extension not limited Respiratory normal respiratory effort Auscultation: lungs clear to auscultation bilaterally Cardiovascular Rate/Rhythm: + bradycardic; + abnormal rhythm (irregularly irregular) Heart Sounds: no murmur Vessels: no carotid bruit Extremities: no edema Due to irregularity of rhythm, EKG performed to r/o afib, showing frequent PVCs. Testing Laboratory Results 04/12/20 09:26 04/12/20 09:26 PT 32.3 Seconds (9.0-12.0) H 04/12/20 09:26 INR 3.3 (0.9-1.1) H 04/12/20 09:26 APTT 46.4 Seconds (21.0-31.0) H* 04/12/20 09:26 Blood Type O Positive 04/12/20 09:26 Antibody Screen NEGATIVE 04/12/20 09:26 *Patient is on Coumadin for h/o PE and follows with a coag clinic. Surgeon's office was flagged re: elevated PT/INR/PTT. Also spoke to patient's cardiology office, who were unable to provide phone number for coag clinic. Spoke to the patient, who stated he would self-medicate and hold his evening dose of Coumadin. I advised him to contact the coumadin clinic for instructions, and he stated he would do that, though he is very well-versed in managing his INR as he has taken Coumadin for over 20 years, and knows the protocols for when his INR is elevated. Electrocardiogram Date: 12/01/19 Sinus rhythm with PACs. No significant change from 11/10/18. Chest X-Ray Date: 04/12/20 Findings: + NAD Stress Test Date: 12/07/19 Type: DSE Resting EF: 55-59% The examination is adequate to evaluate the referral indication. The stress e cho is negative for inducible ischemia. There is an adequate and appropriate heart rate and blood pressure response to the dobutamine/atropine stress protocol. No symptoms were noted. The stress EKG response showed no evidence of ischemia. Frequent PACs were noted during stress. The LV wall motion is normal. Mild concentric LVH. LV cavity size is normal. Mild aortic valve sclerosis is present. Mild mitral regurgitation is present. Grade 2 diastolic dysfunction of the left ventricle.
--- NOTE | 2020-04-12 10:28 | XRay Report ---
XR chest Pre-admission PA/Lat CLINICAL HISTORY: pat preoperative COMPARISON STUDY: 03/04/2017 FINDINGS: The bones soft tissues and hemidiaphragms are normal. The cardiomediastinal silhouette is n ormal. The lungs are clear. The pulmonary vasculature is normal. IMPRESSION: Negative chest. ACT 112: Negative or not required by law. The above report was generated using voice recognition software. It may contain grammatical, syntax or spelling errors. Electronically signed by: Benjamín Nguyen M.D. 04/12/2020 10:27 AM
[2020-04-12 11:09] LABS: Basophils # (auto) 0.02 K/uL (0-0.2); Basophils % (auto) 0.3 %; Eosinophils # (auto) 0.09 K/uL (0-0.5); Eosinophils % (auto) 1.4 %; Hematocrit (blood only) 43.1 % (42-52); Hemoglobin 14.4 g/dL (14.0-18.0); Immature Granulocytes # (auto) 0.01 K/uL (0.00-0.02); Immature Granulocytes % (auto) 0.2 %; Lymphocytes # (auto) 1.28 K/uL (1.2-3.4); Lymphocytes % (auto) 19.5 %; Mean Corpuscular Hgb Conc 33.4 g/dL (32-36); Mean Corpuscular Volume 101.7 fL (80-100); Monocytes # (auto) 0.42 K/uL (0.11-0.59); Monocytes % (auto) 6.4 %; Neutrophils # (auto) 4.74 K/uL (1.4-6.5); Neutrophils % (auto) 72.2 %; Platelet Count 223 K/uL (130-400); RDW Standard Deviation 47.7 fL (36.4-46.3); Red Blood Count 4.24 M/uL (4.7-6.1); White Blood Count 6.56 K/uL (4.8-10.8)
[2020-04-12 11:19] LABS: Calcium 8.4 mg/dl (8.5-10.1); Creatinine Clr Calc Pharmacy 47.6 ml/min; Est GFR (African American) 64.6; Est GFR (Non-African American) 55.7; Potassium 3.9 mmol/L (3.5-5.1)
[2020-04-12 11:32] LABS: INR 3.3 (0.9-1.1); Partial Thromboplastin Ratio 1.7; Prothrombin Time 32.3 Seconds (9.0-12.0)
[2020-04-12 12:12] LABS: Partial Thromboplastin Time 46.4 Seconds (21.0-31.0)
[2020-05-06 05:55] LABS: INR 1.2 (0.9-1.1); Partial Thromboplastin Ratio 1.1; Partial Thromboplastin Time 31.5 Seconds (21.0-31.0); Prothrombin Time 12.4 Seconds (9.0-12.0)
[2020-05-06] MEDS ORDERED: BUPIVACAINE LIPOSOME/PF 266 MG, BUPIVACAINE/EPINEPHRINE 50 ML, SODIUM CHLORIDE 0.9% 30 ... INFIL SCH (06:00)
[2020-05-06] MEDS ORDERED: FAMOTIDINE 20 MG TAB PO SCH (06:00)
[2020-05-06] MEDS ORDERED: LR 500ML BOLUS, THEN 15ML/HR IV SCH (06:00)
[2020-05-06] MEDS ORDERED: METOCLOPRAMIDE HCL 10 MG TABLET PO SCH (06:00)
[2020-05-06] MEDS ORDERED: TRANEXAMIC ACID 1,000 MG **IV Intra-op IV SCH (06:00)
[2020-05-06] MEDS ORDERED: GABAPENTIN 300 MG CAP PO SCH (06:00)
[2020-05-06] MEDS ORDERED: CEFAZOLIN 2000MG 2,000 MG/15 ML SYR IV SCH (06:00)
[2020-05-06] MEDS ORDERED: ACETAMINOPHEN 500 MG TAB PO SCH (06:00)
[2020-05-06] MEDS ORDERED: LR 60ML/HR IV SCH (06:00)
[2020-05-06] MEDS ORDERED: BUPIVACAINE 0.5 % 5 MG/1 ML PF 10ML VIAL ONE (06:19)
[2020-05-06] MEDS ORDERED: PROPOFOL IV EMULSION 10 MG/ML 20 ML VIAL IV ONE ×2 (06:42→08:08)
[2020-05-06] MEDS ORDERED: fentaNYL citrate 100 MCG/2 ML VIAL ONE (06:42)
[2020-05-06] MEDS ORDERED: LIDOCAINE HCL 2% 2 ML VIAL/AMP(20MG/ML) INFIL ONE (06:42)
[2020-05-06] MEDS ORDERED: MIDAZOLAM HCL 1 MG/ML 2ML VIAL ONE (06:43)
--- NOTE | 2020-05-06 06:44 | History & Physical Bridge Note ---
Date of Service May 06, 2020 History & Physical Bridge Note I have examined the patient, reviewed the History & Physical and in the interval since the performance of the History & Physical I have noted the following changes of clinical significance: no changes noted
[2020-05-06] MEDS ORDERED: BUPIVACAINE 0.5 % 5 MG/1 ML MPF 30ML VIAL ONE (06:50)
[2020-05-06] MEDS ORDERED: BACITRACIN INJ 50,000 UNIT VIAL ONE (06:50)
[2020-05-06] MEDS ORDERED: EPINEPHrine INJ 1 MG/ML AMP ONE (06:51)
[2020-05-06] MEDS ORDERED: MoRPHine SULFATE PF 1 MG/ML 10 ML AMP/VIAL ONE (06:52)
[2020-05-06] MEDS ORDERED: PROMETHAZINE HCL 12.5 MG in SODIUM CHLORIDE 0.9% 50 ML IV PRN (07:01)
[2020-05-06] MEDS ORDERED: LACTATED RINGER'S 500 ML IV PRN (07:01)
[2020-05-06] MEDS ORDERED: METOCLOPRAMIDE HCL 10 MG in SODIUM CHLORIDE 0.9% 50 ML IV PRN (07:01)
[2020-05-06] MEDS ORDERED: MoRPHine SULFATE 2 MG/ML CARP IV PRN (07:01)
[2020-05-06] MEDS ORDERED: NALOXONE HCL 0.08 MG in SYRINGE 1.8 ML IV PRN (07:01)
[2020-05-06] MEDS ORDERED: ONDANSETRON INJ 2 MG/ML 2 ML VIAL IV PRN (07:01)
[2020-05-06] MEDS ORDERED: MoRPHine SULFATE PF 1 MG/ML 10 ML AMP/VIAL INT SPINAL ONE (07:01)
[2020-05-06] MEDS ORDERED: HYDROmorphone INJ 0.5 MG/0.5 ML SYR IV PRN (07:01)
[2020-05-06] MEDS ORDERED: NALOXONE HCL 1 MG in SODIUM CHLORIDE 0.9% 1000ML 1,000 ML IV PRN (07:01)
[2020-05-06] MEDS ORDERED: ePHEDrine sulfate 50 MG/ML AMP IV PRN (07:01)
[2020-05-06] MEDS ORDERED: NALOXONE HCL 0.4 MG/1 ML VIAL/CARP IV PRN (07:01)
[2020-05-06] MEDS ORDERED: MEPERIDINE HCL 25 MG/ML CARP/VIAL IV PRN (07:01)
[2020-05-06] MEDS ORDERED: DiphenhydrAMINE HCL 50 MG/ML VIAL IV PRN (07:01)
[2020-05-06] MEDS ORDERED: NO NARCOTICS OR SEDATIVES SCH (07:15)
[2020-05-06] MEDS ORDERED: SODIUM CHLORIDE 0.9% 1000ML 1,000 ML IV SCH (07:15)
[2020-05-06] MEDS ORDERED: DC INTRASPINAL MORPHINE SCH (07:15)
[2020-05-06] MEDS ORDERED: ePHEDrine sulfate 50 MG/ML SYR ONE (07:19)
[2020-05-06] MEDS ORDERED: GLYCOPYRROLATE 0.2 MG/ML VIAL ONE (07:51)
--- NOTE | 2020-05-06 08:38 | Post Operative Brief Note ---
PG Immediate Post Op with CF Date of Surgery May 06, 2020 Pre & Post Diagnosis Operation Date: 05/06/20 07:00 Pre-Op Diagnosis: Left Hip Degenerative Joint Disease Post-Op Diagnosis: Left Hip Degenerative Joint Disease I identified the patient and participated in the time-out.: Yes Procedure Operation Date: 05/06/20 07:00 Actual Procedures p Left Total Hip Replacement, uncemented(Left) - Guicho Myers MD Surgeon Guicho Myers MD Electrotype Caster Minor, PAC Estimated Blood Loss 200 Findings Consistent with Post-Op Diagnosis Fluids 1600 cc Specimens Specimen Description: A: Left femoral head Drains Servin Catheter and Hemovac Drain Anesthesia Type Spinal MAC Complications none Disposition Accompanied Patient To Recovery: Yes Disposition: Recovery Room
--- NOTE | 2020-05-06 09:08 | XRay Report ---
XR hip 1V LT w pelvis CLINICAL HISTORY: IN PACU - A/P PELVIS and LATERAL HIP COMPARISON: None. DISCUSSION: Anatomic alignment post total left hip arthroplasty. Could contact between prosthetic and underlying bone. Expected postoperative soft tissue change IMPRESSION: Anatomic alignment post total left hip arthroplasty. ACT 112: Negative or not required by law. The above report was generated using voice recognition software. It may contain grammatical, syntax or spelling errors. Electronically signed by: Benjamín Nguyen M.D. 05/06/2020 9:07 AM
--- NOTE | 2020-05-06 10:17 | Anesthesiology Progress Note ---
Date of Service May 06, 2020 Anesthesia Post Procedure Vital Signs Vital Signs: Temp Pulse Pulse Resp BP Pulse Ox 05/06/20 09:55 60 14 136/68 95 05/06/20 09:45 36.3 C L 65 14 120/88 97 05/06/20 09:35 68 14 133/72 96 05/06/20 09:25 71 19 119/75 99 05/06/20 09:15 66 16 127/72 98 05/06/20 09:05 72 16 108/84 95 05/06/20 08:55 74 16 140/70 97 05/06/20 08:45 76 16 138/66 96 05/06/20 08:37 36.0 C L 80 16 117/62 96 05/06/20 05:32 36.8 C 61 18 165/97 H 93 Transfer of Care Handoff Completed per policy Notes Mental Status: alert / awake / arousable and participated in evaluation Patient Amnestic to Procedure: Yes Nausea / Vomiting: adequately controlled Pain: adequately controlled Airway Patency, RR, SpO2: stable & adequate BP & HR: stable & adequate Hydration State: stable & adequate Neuraxial Anesthesia: was administered and sensory block is resolving Anesthetic Complications: no major complications apparent
[2020-05-06] MEDS ORDERED: bisacodyL 10 MG SUPP PR PRN (10:26)
[2020-05-06] MEDS ORDERED: NON-FORMULARY MEDICATION (Vitamins A,C,E-Zinc-Copper [Preservision Areds] 1 CAP) PO SCH (10:26)
[2020-05-06] MEDS ORDERED: MAGNESIUM HYDROXIDE SUSP 30 ML UDC PO PRN (10:26)
[2020-05-06] MEDS ORDERED: ALUMINUM/MAGNESIUM SUSP 30 ML UDC PO PRN (10:26)
[2020-05-06] MEDS ORDERED: NITROGLYCERIN SL 0.4 MG/TAB TAB SL PRN (10:26)
[2020-05-06] MEDS ORDERED: WARFARIN SOD 10 MG TAB PO ONE (10:54)
[2020-05-06] MEDS: SODIUM CHLORIDE 0.9% 1000ML 1,000 ML IV SCH ×2 (11:10→20:23)
[2020-05-06] MEDS: VITAMIN B COMPLEX TAB PO SCH (11:47)
[2020-05-06] MEDS: PANTOprazole 40 MG TAB PO SCH (11:48)
[2020-05-06] MEDS: AMLODIPINE BESYLATE 5 MG TAB PO SCH (11:48)
[2020-05-06] MEDS: TRIAMTERENE/HCTZ 37.5/25MG TAB PO SCH (11:49)
[2020-05-06] MEDS: DOCUSATE SODIUM 100 MG CAP PO SCH ×2 (11:49→20:22)
[2020-05-06] MEDS: METOPROLOL TARTRATE 25 MG TAB PO SCH ×2 (11:49→20:22)
[2020-05-06] MEDS: MULTIVITAMIN TAB PO SCH (11:49)
[2020-05-06] MEDS: LEVOTHYROXINE SODIUM 75 MCG TABLET PO SCH (11:49)
[2020-05-06] MEDS: LOSARTAN POTASSIUM 50 MG TAB PO SCH ×2 (11:50→20:22)
[2020-05-06] MEDS: ASPIRIN 81 MG ECTAB PO SCH (11:50)
[2020-05-06] MEDS: FINASTERIDE 5 MG TAB PO SCH (11:52)
[2020-05-06] MEDS: MAGNESIUM OXIDE 400 MG TAB PO SCH ×2 (12:18→20:22)
[2020-05-06] MEDS: POTASSIUM CHLORIDE 10 MEQ TABCR PO SCH (12:18)
[2020-05-06] MEDS: KETOROLAC TROMETHAMINE 15 MG/ML VIAL IV SCH ×3 (12:19→23:12)
[2020-05-06] MEDS: ACETAMINOPHEN 500 MG TAB PO SCH ×2 (12:20→22:14)
[2020-05-06] MEDS: CEFAZOLIN 2000MG 2,000 MG/15 ML SYR IV SCH ×2 (14:07→22:14)
[2020-05-06] MEDS: FERROUS GLUCONATE 324 MG TAB PO SCH (17:18)
[2020-05-06] MEDS: ASCORBIC ACID 500 MG TAB PO SCH (17:18)
--- NOTE | 2020-05-06 19:02 | Operative Report ---
Post Operative Report Pre & Post Diagnosis Operation Date: 05/06/20 07:00 Pre-Op Diagnosis: Left Hip Degenerative Joint Disease Post-Op Diagnosis: Left Hip Degenerative Joint Disease I identified the patient and participated in the time-out.: Yes Procedure Operation Date: 05/06/20 07:00 Actual Procedures p Left Total Hip Replacement, uncemented(Left) - Guicho Myers MD Surgeon Guicho Myers MD Procedure Writer Minor, PAC Estimated Blood Loss 200 Findings Consistent with Post-Op Diagnosis Operative findings revealed advanced left hip DJD. He had extensive significant joint effusion. That significant and extensive grade 4 [id number] disease. He had pretty significant anterior acetabular osteophyte. Fluids 1600 cc. Specimens Left femoral head sent for pathology. Drains None. Anesthesia Type Spinal MAC Complications none Disposition Accompanied Patient To Recovery: Yes Disposition: Recovery Room Indications Patient is an 89-year-old very active gentleman who is had a several year history of increasing left hip pain and discomfort is gotten significant worse over the past 6 to 9 months. He is resorted to using a cane to get along. X- rays show progressive hip arthritis. He failed conservative measures. He was medically optimized and elected proceed with total hip arthroplasty. Description of Procedure Operative implants consist of: 1. Biomet G7 size 54 mm acetabular shell. 2. 6.5 cancellus acetabular screws 1 of 35 mm length 125 mm length. 3. [place] hole eliminator. 4. 54 mm outer diameter and 40 mm inner diameter highly cross-linked polyethylene liner. 5. Clark Corail size 12 KLA femoral stem. 6. +8.5/40 mm ceramic articular ball. Patient was taken to the operating room identified and placed on the operating table supine position protectors were properly padded. IV antibiotics arrived by anesthesia team. A spinal anesthetic had been implemented holding area. A Servin cath was placed in sterile fashion with the patient then placed in the right lateral decubitus position. An axillary roll was placed. A Stulberg hip positioner was used for positioning. The left hip and leg were then prepped and draped in usual sterile fashion. A posterior lateral approach the left hip was then performed to a curvilinear incision centered over the greater trochanter. Sharp dissection got through subcutaneous tissue down to the IT band gluteal fascia. The IT band gluteal fascia were incised longitudinally in line with skin incision. The underlying greater truck bursa was excised. The piriformis and external rotators were tagged and taken off the posterior aspect of the hip joint capsule. Great care was taken throughout the procedure protect the sciatic nerve at all times. A posterior capsulotomy was then performed leaving a large flap for later repair. Hip was internally rotated and dislocated. Femoral neck osteotomy cut was made with Final Cut about 12 mm above the lesser trochanter. Femoral heads were removed and sent for pathology. The femur was retracted anteriorly. Attention drawn the acetabulum. The acetabular labrum was excised. The pulmonary fat was excised. Sequential reaming the acetabular was then performed again size 43 and progressing up to 53. A 54 mm Biomet G7 acetabular shell was then placed in about 4 degrees lateral opening and 20 degrees of anteversion. It was fixed with two 6.5 cancellus cancellus acetabular screws. An anterior osteophyte was removed. Trial liner was placed. That we elect to place a 40 liner in order to maximize his stability. Attention drawn the femur. The proximal femur was entered with a cookie-cutter followed by canal finder. I then broached begin the size 8 and progressing up to a size 12. Got excellent fit of the 12. Calcar reamer was used smooth and off the calcar. Then trialed the hip. Patient had quite a bit of offset so the +8.5 head was used in order to create create offset, soft tissue tension, and leg lengths equally. We elect to place these implants. All trial implants were removed. An apex hole assistant professor of art was placed but highly cross-linked polyethylene liner was placed. A size 12 KLA femoral stem was impacted in position. A +8.5/40 mm ceramic articular ball was placed. Hip was located once again found to be stable. Attention drawn toward closing. The wounds irrigated copious pulsatile lavage solution. I did inject locally with 60 cc of half percent Marcaine with epinephrine. Posterior capsule and external rotators were then repaired through drill holes in the posterior trochanter with #2 Tycron suture. The IT band gluteal fascia then closed with #1 PDS suture running fashion for subcutaneous tissue then closed in 2 layers with a deep layer #1 Vicryl suture and subcutaneous tissues with 2-0 Dexon suture in a buried interrupted fashion. Skin was closed skin stefany. Leg was then cleaned dried a sterile dressing composed Xeroform, 4 x 4's, sterile ABD pad and foam tape was applied. Patient then transferred to the recovery room in stable condition. Patient tolerated procedure well no complications. Paul Rasmussen, my physician fitter's assistant, was present for the entire procedure. His assistance was required for appropriate positioning, prepping and draping, surgi kayli exposure, performing the technical details of the procedure, placing the implants, closing the wound, and placement of the sterile bandage. I attest to the content of the Intraoperative Record and any orders documented therein. Any exceptions are noted below.
[2020-05-06] MEDS: SENNA 8.6 MG TAB PO SCH (20:22)
[2020-05-06] MEDS: MELATONIN 3 MG TAB PO SCH (20:22)
[2020-05-06] MEDS: TAMSULOSIN HCL 0.4 MG CAP PO SCH (20:22)
[2020-05-06] MEDS: ATORVASTATIN 40 MG TAB PO SCH (20:22)
[2020-05-07] MEDS ORDERED: NALOXONE HCL 0.4 MG/1 ML VIAL/CARP IV PRN (01:01)
[2020-05-07] MEDS ORDERED: HYDROmorphone INJ 0.5 MG/0.5 ML SYR IV PRN (01:01)
[2020-05-07] MEDS ORDERED: METOCLOPRAMIDE HCL INJ 5 MG/ML 2 ML VIAL IV PRN (01:01)
[2020-05-07] MEDS ORDERED: ONDANSETRON INJ 2 MG/ML 2 ML VIAL IV PRN (01:01)
[2020-05-07] MEDS: KETOROLAC TROMETHAMINE 15 MG/ML VIAL IV SCH ×4 (05:51→22:34)
[2020-05-07] MEDS: ACETAMINOPHEN 500 MG TAB PO SCH ×3 (05:53→21:51)
[2020-05-07] MEDS: PANTOprazole 40 MG TAB PO SCH (05:54)
[2020-05-07] MEDS: LEVOTHYROXINE SODIUM 75 MCG TABLET PO SCH (05:54)
[2020-05-07 06:11] LABS: Basophils # (auto) 0.01 K/uL (0-0.2); Basophils % (auto) 0.1 %; Eosinophils # (auto) 0.01 K/uL (0-0.5); Eosinophils % (auto) 0.1 %; Hematocrit (blood only) 38.2 % (42-52); Hemoglobin 13.1 g/dL (14.0-18.0); Immature Granulocytes # (auto) 0.03 K/uL (0.00-0.02); Immature Granulocytes % (auto) 0.3 %; Lymphocytes # (auto) 0.95 K/uL (1.2-3.4); Lymphocytes % (auto) 8.3 %; Mean Corpuscular Hgb Conc 34.3 g/dL (32-36); Mean Corpuscular Volume 102.1 fL (80-100); Mean Platelet Volume 9.4 fL (7.4-10.4); Monocytes # (auto) 0.87 K/uL (0.11-0.59); Monocytes % (auto) 7.6 %; Neutrophils # (auto) 9.53 K/uL (1.4-6.5); Neutrophils % (auto) 83.6 %; Platelet Count 172 K/uL (130-400); RDW Coefficient of Variation 12.6 % (11.5-14.5); RDW Standard Deviation 47.5 fL (36.4-46.3); Red Blood Count 3.74 M/uL (4.7-6.1)
[2020-05-07 06:20] LABS: INR 1.2 (0.9-1.1); Prothrombin Time 12.5 Seconds (9.0-12.0)
[2020-05-07 06:47] LABS: BUN Creatinine Ratio 18.2 (10-20); Calcium 8.1 mg/dl (8.5-10.1); Creatinine Clr Calc Pharmacy 60.2 ml/min; Est GFR (African American) 87.5; Est GFR (Non-African American) 75.5; Potassium 3.8 mmol/L (3.5-5.1)
[2020-05-07] MEDS ORDERED: WARFARIN SOD 7.5 MG TAB PO ONE (07:59)
--- NOTE | 2020-05-07 08:27 | Progress Notes ---
DATE: 05/07/2020 SUBJECTIVE: An 89-year-old gentleman postop day 1 from a left hip replacement. He is doing well. Really not having much pain. He had a little dizziness yesterday, no fogginess, but this is improved. No chest pain or shortness of breath. Not feeling dizzy or lightheaded. OBJECTIVE: VITAL SIGNS: Temperature 36.7. Vital signs stable. GENERAL: Physical examination shows a pleasant elderly male. He is lying in bed and looks comfortable. LUNGS: Clear to auscultation. HEART: Regular rate and rhythm. ABDOMEN: Soft, nontender, nondistended. EXTREMITIES: Grossly neurovascularly intact except as follows: Examination of the left leg reveals the leg to be well aligned. Dressing is clean, dry and intact. Thigh is soft and supple. Hip is located. He is neurologically intact. LABORATORY DATA: Hemoglobin 13.1. Hematocrit 38.2. Electrolytes are stable. ASSESSMENT: An 89-year-old gentleman postop day 1 from a left hip replacement, doing well. His pain is controlled. Hip is located. He is neurologically intact. PLAN: 1. DVT prophylaxis including thigh-high TEDs, SCDs, and back on his Coumadin today. 2. PT/OT. Weight bear as tolerated. Left total hip protocol. 3. Pain control, doing okay with current pain regimen. 4. Disposition. He is going to see how therapy goes today. I think he will likely be able to go home with some home health and his family's assistance as his son is visiting. He may consider a short rehab stay.
[2020-05-07] MEDS: ENOXAPARIN INJ 30 MG/0.3 ML SYR SQ SCH (08:52)
[2020-05-07] MEDS: MAGNESIUM OXIDE 400 MG TAB PO SCH ×2 (08:54→20:48)
[2020-05-07] MEDS: ASPIRIN 81 MG ECTAB PO SCH (08:54)
[2020-05-07] MEDS: DOCUSATE SODIUM 100 MG CAP PO SCH ×2 (08:54→20:50)
[2020-05-07] MEDS: METOPROLOL TARTRATE 25 MG TAB PO SCH ×2 (08:54→20:49)
[2020-05-07] MEDS: AMLODIPINE BESYLATE 5 MG TAB PO SCH (08:54)
[2020-05-07] MEDS: TRIAMTERENE/HCTZ 37.5/25MG TAB PO SCH (08:54)
[2020-05-07] MEDS: FINASTERIDE 5 MG TAB PO SCH (08:54)
[2020-05-07] MEDS: VITAMIN B COMPLEX TAB PO SCH (08:54)
[2020-05-07] MEDS: ASCORBIC ACID 500 MG TAB PO SCH ×2 (08:54→18:17)
[2020-05-07] MEDS: FERROUS GLUCONATE 324 MG TAB PO SCH ×2 (08:55→18:17)
[2020-05-07] MEDS: LOSARTAN POTASSIUM 50 MG TAB PO SCH ×2 (08:55→20:50)
[2020-05-07] MEDS: MULTIVITAMIN TAB PO SCH (08:55)
[2020-05-07] MEDS: MELATONIN 3 MG TAB PO SCH (20:46)
[2020-05-07] MEDS: TAMSULOSIN HCL 0.4 MG CAP PO SCH (20:48)
[2020-05-07] MEDS: SENNA 8.6 MG TAB PO SCH (20:48)
[2020-05-07] MEDS: ATORVASTATIN 40 MG TAB PO SCH (20:49)
[2020-05-08] MEDS: KETOROLAC TROMETHAMINE 15 MG/ML VIAL IV SCH (05:33)
[2020-05-08] MEDS: ACETAMINOPHEN 500 MG TAB PO SCH ×3 (05:33→20:39)
[2020-05-08] MEDS: LEVOTHYROXINE SODIUM 75 MCG TABLET PO SCH (05:51)
[2020-05-08 06:26] LABS: INR 1.6 (0.9-1.1); Prothrombin Time 16.7 Seconds (9.0-12.0)
[2020-05-08] MEDS: DOCUSATE SODIUM 100 MG CAP PO SCH ×2 (07:43→21:38)
[2020-05-08] MEDS ORDERED: WARFARIN SOD 3 MG TAB PO ONE (07:48)
[2020-05-08] MEDS: POTASSIUM CHLORIDE 10 MEQ TABCR PO SCH (08:31)
[2020-05-08] MEDS: MAGNESIUM OXIDE 400 MG TAB PO SCH ×2 (08:31→20:39)
[2020-05-08] MEDS: MULTIVITAMIN TAB PO SCH (08:31)
[2020-05-08] MEDS: PANTOprazole 40 MG TAB PO SCH (08:31)
[2020-05-08] MEDS: FERROUS GLUCONATE 324 MG TAB PO SCH ×2 (08:31→17:26)
[2020-05-08] MEDS: ASPIRIN 81 MG ECTAB PO SCH (08:31)
[2020-05-08] MEDS: ASCORBIC ACID 500 MG TAB PO SCH ×2 (08:31→17:26)
[2020-05-08] MEDS: AMLODIPINE BESYLATE 5 MG TAB PO SCH (08:32)
[2020-05-08] MEDS: FINASTERIDE 5 MG TAB PO SCH (08:32)
[2020-05-08] MEDS: VITAMIN B COMPLEX TAB PO SCH (08:32)
[2020-05-08] MEDS: METOPROLOL TARTRATE 25 MG TAB PO SCH ×2 (08:32→20:39)
[2020-05-08] MEDS: LOSARTAN POTASSIUM 50 MG TAB PO SCH ×2 (08:32→20:39)
[2020-05-08] MEDS: TRAMADOL HCL 50 MG TABLET PO PRN (08:33)
[2020-05-08] MEDS: ENOXAPARIN INJ 30 MG/0.3 ML SYR SQ SCH (08:33)
[2020-05-08] MEDS: TRIAMTERENE/HCTZ 37.5/25MG TAB PO SCH (08:33)
--- NOTE | 2020-05-08 08:56 | Progress Notes ---
DATE: 05/08/2020 SUBJECTIVE: An 89-year-old gentleman postop day 2 from a left hip replacement. Having a little bit more pain today. Having a little bit more difficulty lifting his leg and a bit frustrated by that. No chest pain or shortness of breath. Not feeling dizzy or lightheaded. OBJECTIVE: VITAL SIGNS: Temperature 37.2. Vital signs stable. Slightly hypertensive with blood pressure 184/84. GENERAL: Examination reveals a pleasant elderly male. He is lying in bed, looks completely comfortable. EXTREMITIES: Examination of the left leg and hip reveals leg lengths to be equal. Dressing is clean, dry and intact. Thigh is soft and supple. Just a slight bruising. He is neurologically intact. ASSESSMENT: An 89-year-old gentleman postop day 2 from a left hip replacement, doing pretty well. Having a little bit more pain today, which is unusual. Having difficulty lifting his leg, which is normal. PLAN: 1. DVT prophylaxis include thigh-high TEDs, SCDs and he is back on his Coumadin. 2. PT/OT. He is to weightbear as tolerated. Left total hip protocol. 3. Pain control. Doing pretty well with current pain regimen. 4. Disposition: He has now decided he wants to go to rehab. We will get social work instructor looking into this option.
[2020-05-08] MEDS: MELATONIN 3 MG TAB PO SCH (20:38)
[2020-05-08] MEDS: TAMSULOSIN HCL 0.4 MG CAP PO SCH (20:38)
[2020-05-08] MEDS: ATORVASTATIN 40 MG TAB PO SCH (20:39)
[2020-05-08] MEDS: SENNA 8.6 MG TAB PO SCH (21:38)
[2020-05-09] MEDS: ACETAMINOPHEN 500 MG TAB PO SCH ×2 (05:10→13:55)
[2020-05-09] MEDS: LEVOTHYROXINE SODIUM 75 MCG TABLET PO SCH (05:10)
[2020-05-09 05:15] LABS: INR 1.5 (0.9-1.1); Prothrombin Time 15.2 Seconds (9.0-12.0)
[2020-05-09] MEDS ORDERED: WARFARIN SOD 6 MG TAB PO ONE (07:40)
--- NOTE | 2020-05-09 08:04 | Progress Notes ---
DATE: 05/09/2020 SUBJECTIVE: An 89-year-old gentleman now postop day 3 from a left total hip replacement. He is doing reasonably well. Really no pain while resting, but pain with walking. Denies any chest pain or shortness of breath. Not feeling dizzy or lightheaded. OBJECTIVE: VITAL SIGNS: Temperature is 36.6. Vital signs stable. GENERAL: Shows a pleasant elderly male. He is sitting up in bed and looks comfortable. EXTREMITIES: Examination of the left hip reveals the leg lengths to be equal. Dressing is clean, dry and intact. His thigh is soft and supple. He is neurologically intact. ASSESSMENT: An 89-year-old gentleman postop day 3 from a left hip replacement, doing pretty well. Pain is controlled. Just having a little difficulty lifting his leg and frustrated by that. That is all normal at this point. PLAN: 1. DVT prophylaxis including thigh-high TEDs, SCDs, and back on his Coumadin. 2. PT/OT, weightbear as tolerated. Left total hip protocol. 3. Pain control, doing pretty well with current pain regimen. 4. Disposition: Plan to discharge to rehab. We are just waiting for placement.
[2020-05-09] MEDS: DOCUSATE SODIUM 100 MG CAP PO SCH (08:09)
[2020-05-09] MEDS: MAGNESIUM OXIDE 400 MG TAB PO SCH (08:11)
[2020-05-09] MEDS: METOPROLOL TARTRATE 25 MG TAB PO SCH (08:11)
[2020-05-09] MEDS: LOSARTAN POTASSIUM 50 MG TAB PO SCH (08:11)
[2020-05-09] MEDS: FINASTERIDE 5 MG TAB PO SCH (08:12)
[2020-05-09] MEDS: TRIAMTERENE/HCTZ 37.5/25MG TAB PO SCH (08:12)
--- NOTE | 2020-05-09 08:12 | Anesthesiology Progress Note ---
Date of Service May 09, 2020 Anesthesia Post Procedure Vital Signs Vital Signs: Temp Pulse Resp BP BP Pulse Ox 05/09/20 08:08 78 129/64 05/09/20 06:04 36.6 C 80 16 149/76 H 95 05/08/20 23:21 36.7 C 67 14 155/85 H 92 05/08/20 20:35 77 172/82 H 05/08/20 14:57 36.9 C 76 16 154/77 H 96 Pain Intensity Left Hip: Pain Intensity: 2 Notes Mental Status: alert / awake / arousable and participated in evaluation Patient Amnestic to Procedure: Yes Nausea / Vomiting: adequately controlled Pain: adequately controlled Airway Patency, RR, SpO2: stable & adequate BP & HR: stable & adequate Hydration State: stable & adequate Neuraxial Anesthesia: was administered and sensory block resolved Anesthetic Complications: no major complications apparent and Pt Satisfied with anesthetic care
[2020-05-09] MEDS: MULTIVITAMIN TAB PO SCH (08:13)
[2020-05-09] MEDS: VITAMIN B COMPLEX TAB PO SCH (08:13)
[2020-05-09] MEDS: PANTOprazole 40 MG TAB PO SCH (08:13)
[2020-05-09] MEDS: ASPIRIN 81 MG ECTAB PO SCH (08:13)
[2020-05-09] MEDS: FERROUS GLUCONATE 324 MG TAB PO SCH (08:13)
[2020-05-09] MEDS: ASCORBIC ACID 500 MG TAB PO SCH (08:14)
[2020-05-09] MEDS: AMLODIPINE BESYLATE 5 MG TAB PO SCH (08:14)
[2020-05-09] MEDS: ENOXAPARIN INJ 30 MG/0.3 ML SYR SQ SCH (08:16)
[2020-05-09] MEDS: TRAMADOL HCL 50 MG TABLET PO PRN (11:28)
--- NOTE | 2020-05-17 12:53 | Discharge Summary ---
Date of Service May 17, 2020 Admission HPI Per Admitting Provider Patient is an 89-year-old very active gentleman who is had a several year history of increasing left hip pain and discomfort is gotten significant worse over the past 6 to 9 months. He is resorted to using a cane to get along. X- rays show progressive hip arthritis. He failed conservative measures. He was medically optimized and elected proceed with total hip arthroplasty. Admission Exam (Per Admitting) Constitutional WD/WN, vitals as above Eyes PERRL, conjunctivae normal, anicteric sclerae ENMT external ear and nose normal, oropharynx normal Respiratory normal respiratory effort; no respiratory distress and no labored breathing Cardiovascular Rate/Rhythm: regular rate and regular rhythm Gastrointestinal (Abdomen) Inspection/Auscultation: abdomen normal to inspection; abdomen not distended Musculoskeletal Left hip IR and ER are limited with pain. Left leg is slightly shorter than right. Skin no rashes, warm and dry Psychiatric A+Ox3, euthymic affect Discharge Data Consultations 05/07/20 08:00 Consult Case Management - Discharge Planning Routine Procedures Performed Operation Date: 05/06/20 07:00 Actual Procedures p Left Total Hip Replacement, uncemented(Left) - Guicho Myers MD Hospital Course (1) Left hip pain: On May 06 he was admitted to [facility] to undergo a left total hip arthroplasty. He tolerated the procedure and was taken to recovery. On post-op day number he was doing well and was working with PT. He continued to improved and decided to go to rehab facility. Case Management was consulted to assist in d/c planning. On post-op day number 2 he did have some worsening pain but was continuing to work with PT. On post-op day number he was improved, was cleared by PT and was d/c to rehab that day. Discharge Instructions 1. DVT prophylaxis including thigh-high TEDs, SCDs, and back on his Coumadin. 2. PT/OT, weightbear as tolerated. Left total hip protocol. 3. Pain control, doing pretty well with current pain regimen which includes Ultram and Tylenol 4. Follow-up with Dr. Myers in 2 weeks. Coding Level of Care Code D/C Day Management <30 mins Diagnoses Left hip pain M25.552
== END 2020-05-09 16:13 | DRG 470 ==
LOC: ASU 05:02 → 3E 05:02
DX: Z91.048 Other nonmedicinal substance allergy status; Z86.711 Personal history of pulmonary embolism; N40.0 Benign prostatic hyperplasia without lower urinary tract symptoms; Z79.01 Long term (current) use of anticoagulants; E03.9 Hypothyroidism, unspecified; E78.00 Pure hypercholesterolemia, unspecified; Z88.2 Allergy status to sulfonamides; Z95.5 Presence of coronary angioplasty implant and graft; Z88.1 Allergy status to other antibiotic agents; Z79.82 Long term (current) use of aspirin; I25.10 Atherosclerotic heart disease of native coronary artery without angina pectoris; Z79.890 Hormone replacement therapy; I10 Essential (primary) hypertension; Z79.899 Other long term (current) drug therapy; G47.30 Sleep apnea, unspecified; Z88.5 Allergy status to narcotic agent; M16.12 Unilateral primary osteoarthritis, left hip